=== PATIENT | male | born 1990 | race Caucasian/White ===

== ENCOUNTER 2016-05-09 18:21 | Emergency (ER) | payer OTHER ==
[2016-05-09] MEDS ORDERED: IPRATROPIUM-ALBUTEROL 3 ML NEB INHALATION STA (18:38)
[2016-05-09] MEDS ORDERED: ACETAMINOPHEN TAB 500 MG TAB PO STA (18:38)
--- NOTE | 2016-05-09 19:04 | ED ---
URI HPI - General Chief Complaint: Upper Respiratory Infection Stated Complaint: sob Time Seen by Provider: 05/09/16 18:33 Source: patient, RN notes reviewed Mode of arrival: ambulatory Limitations: no limitations - History of Present Illness Initial Comments: 25-year-old male presents emergency department to complaint of fever, cough. Patient states she's been sick for last 23 days. Patient states having problems with his asthma. He has been using his albuterol treatments. Patient states has not taken any Tylenol or Motrin today. Patient states that he feels like he has pneumonia. Patient states that is slightly nose but denies sore throat, ear pain, headache. Patient does complain of diffuse body aches and chills. Patient states he also has been having severe diarrhea and which she states that he actually had a bowel movement on himself because he cannot control it. Patient states he knew about it. - Related Data Home Medications Medication Instructions Recorded Confirmed Cetirizine HCl [Zyrtec] 10 mg PO DAILY 05/12/15 05/09/16 Albuterol Nebulized [Ventolin 2.5 mg INHALATION RT-Q8H PRN 05/01/16 05/09/16 Nebulized] guaiFENesin SYRUP 100MG/5ML 200 mg PO Q8H PRN 05/09/16 05/09/16 [Robitussin] Previous Rx's Medication Instructions Recorded Amoxicillin/Potassium Clav 1 tab PO Q12HR #20 tab 05/01/16 [Augmentin 875-125 Tablet] Azithromycin [Zithromax Z-pack] 0 mg PO DIRECTED #1 pack 05/09/16 methylPREDNISolone [Medrol Dose 4 mg PO DIRECTED #1 pack 05/09/16 Pack] Allergies Allergy/AdvReac Type Severity Reaction Status Date / Time diphenhydramine HCl Allergy Unknown Verified 05/09/16 18:35 [From Benadryl] latex Allergy Rash/Hives Verified 05/09/16 18:35 peanut Allergy Anaphylaxis Verified 05/09/16 18:35 peas Allergy Swelling Verified 05/09/16 18:35 quetiapine fumarate Allergy Unknown Verified 05/09/16 18:35 [From Seroquel] Review of Systems ROS Statement: Those systems with pertinent positive or pertinent negative responses have been documented in the HPI. ROS Other: All systems not noted in ROS Statement are negative. Past Medical History Past Medical History: Asthma, Skin Disorder Additional Past Medical History / Comment(s): cerebral palsy History of Any Multi-Drug Resistant Organisms: None Reported Additional Past Surgical History / Comment(s): mass removed from left lung Past Psychological History: ADD/ADHD, Anxiety, Depression Smoking Status: Current every day smoker Past Alcohol Use History: Rare Past Drug Use History: Marijuana General Exam Limitations: no limitations General appearance: alert, in no apparent distress Head exam: Present: atraumatic, normocephalic, normal inspection Eye exam: Present: normal appearance, PERRL, EOMI. Absent: scleral icterus, conjunctival injection, periorbital swelling ENT exam: Present: normal exam, normal oropharynx, mucous membranes moist, TM's normal bilaterally, normal external ear exam Neck exam: Present: normal inspection, full ROM. Absent: tenderness, meningismus, lymphadenopathy Respiratory exam: Present: wheezes (Diffuse). Absent: normal lung sounds bilaterally, respiratory distress, rales, rhonchi, stridor Cardiovascular Exam: Present: normal rhythm, tachycardia, normal heart sounds. Absent: systolic murmur, diastolic murmur, rubs, gallop, clicks GI/Abdominal exam: Present: soft, normal bowel sounds. Absent: distended, tenderness, guarding, rebound, rigid Back exam: Absent: CVA tenderness (R), CVA tenderness (L) Neurological exam: Present: alert, oriented X3, CN II-XII intact Skin exam: Present: warm, dry, intact, normal color. Absent: rash Course Vital Signs 05/09/16 05/09/16 05/09/16 18:24 18:54 19:02 Temperature 100.5 F H 101.8 F H Pulse Rate 126 H 111 H 110 H Respiratory 18 20 Rate Blood Pressure 132/60 135/60 O2 Sat by Pulse 95 94 L Oximetry 05/09/16 19:11 Temperature Pulse Rate 110 H Respiratory Rate Blood Pressure O2 Sat by Pulse Oximetry Medical Decision Making - Medical Decision Making 25-year-old male presented for fever cough and congestion. Patient does have right lobe pneumonia. Patient is doing better after DuoNeb treatment. Patient will be discharged on antibiotics, steroids and breathing treatments. Return parameters discussed. - Lab Data Lab Results 05/09/16 Range/Units 18:47 Influenza Type A RNA Not Detected (Not Detectd) Influenza Type B (PCR) Not Detected (Not Detectd) Disposition Clinical Impression: Pneumonia Disposition: HOME SELF-CARE Condition: Stable Instructions: Pneumonia (ED) Additional Instructions: Please return to the Emergency Department if symptoms worsen or any other concerns. Prescriptions: Azithromycin [Zithromax Z-pack] 0 mg PO DIRECTED #1 pack methylPREDNISolone [Medrol Dose Pack] 4 mg PO DIRECTED #1 pack Time of Disposition: 19:27
--- NOTE | 2016-05-09 19:09 | XR ---
EXAMINATION TYPE: XR chest 2V DATE OF EXAM: 05/09/2016 6:58 PM COMPARISON: NONE HISTORY: Cough and short of breath TECHNIQUE: Frontal and lateral views of the chest are obtained. FINDINGS: Heart and mediastinum are normal. There is some patchy airspace consolidation in the right lower lobe and probably a small infiltrate as well as in the right middle lobe. The left lung is michael ar. There are no hilar masses. There is no pleural effusion. Bony thorax is intact. IMPRESSION: Right lower lobe and right middle lobe pneumonia. Normal heart.
[2016-05-09] MEDS ORDERED: cefTRIAXone 1,000 MG VIAL (IM USE) IM STA (19:25)
[2016-05-09] MEDS ORDERED: predniSONE 50 MG TAB PO STA (19:25)
[2016-05-09] MEDS ORDERED: AZITHROMYCIN 250 MG TAB PO STA (19:27)
[2016-05-09 19:50] VITALS: BP 129/83; PULSE 100; RESP 18; TEMP 101.6
== END 2016-05-09 19:59 | disposition home or self-care (01) ==
LOC: EC 18:21
DX: J18.9 Pneumonia, unspecified organism (principal); J45.909 Unspecified asthma, uncomplicated; F17.200 Nicotine dependence, unspecified, uncomplicated; G80.9 Cerebral palsy, unspecified; Z88.8 Allergy status to other drugs, medicaments and biological substances; Z91.040 Latex allergy status
CPT/HCPCS: 99284; 96372; 94640; 87502; 71020; J0696; J7512

== ENCOUNTER 2017-02-15 20:13 | Emergency (ER) | payer OTHER ==
[2017-02-15] MEDS ORDERED: methylPREDNISolone SOD SUCCI 125 MG/2 ML VIAL IV STA (21:24)
[2017-02-15] MEDS ORDERED: ALBUTEROL NEBULIZED 7.5 MG, IPRATROPIUM NEBULIZED 0.5 MG, SODIUM CHLORIDE 0.9% NEBULIZ ... INHALATION ONE ×3 (21:24)
[2017-02-15] MEDS ORDERED: ACETAMINOPHEN TAB 500 MG TAB PO STA (21:24)
--- NOTE | 2017-02-15 21:27 | ED ---
General Adult HPI - General Chief complaint: Upper Respiratory Infection Stated complaint: SOB Time Seen by Provider: 02/15/17 21:00 Source: patient, RN notes reviewed Mode of arrival: wheelchair Limitations: no limitations - History of Present Illness Initial comments: This is a 26-year-old male presents emergency department with past medical history significant for asthma. Patient states he try to quit smoking about a week ago and ever since then he's had difficulty breathing and increased wheezing. Patient states he does feel warm as if he has a fever but he never took his temperature. Patient states she's taken multiple breathing treatments but the difficulty breathing persists. Patient denies any sputum production when he coughs. But he is having a increased cough. Patient denies any chest pain or palpitations. Patient denies abdominal pain patient denies nausea vomiting diarrhea. Patient denies any dysuria hematuria urinary frequency. Patient denies headache patient denies any numbness weakness. - Related Data Home Medications Medication Instructions Recorded Confirmed Cetirizine HCl [Zyrtec] 10 mg PO DAILY 05/12/15 05/09/16 Albuterol Nebulized [Ventolin 2.5 mg INHALATION RT-Q8H PRN 05/01/16 05/09/16 Nebulized] guaiFENesin SYRUP 100MG/5ML 200 mg PO Q8H PRN 05/09/16 05/09/16 [Robitussin] Previous Rx's Medication Instructions Recorded Amoxicillin/Potassium Clav 1 tab PO Q12HR #20 tab 05/01/16 [Augmentin 875-125 Tablet] Azithromycin [Zithromax Z-pack] 0 mg PO DIRECTED #1 pack 05/09/16 methylPREDNISolone [Medrol Dose 4 mg PO DIRECTED #1 pack 05/09/16 Pack] Albuterol Inhaler [Ventolin Hfa 1 - 2 puff INHALATION Q6HR PRN #2 02/15/17 Inhaler] puff predniSONE 40 mg PO DAILY #8 tab 02/15/17 Allergies Allergy/AdvReac Type Severity Reaction Status Date / Time diphenhydramine HCl Allergy Unknown Verified 05/09/16 18:35 [From Benadryl] latex Allergy Rash/Hives Verified 05/09/16 18:35 peanut Allergy Anaphylaxis Verified 05/09/16 18:35 peas Allergy Swelling Verified 05/09/16 18:35 quetiapine fumarate Allergy Unknown Verified 05/09/16 18:35 [From Seroquel] Review of Systems ROS Statement: Those systems with pertinent positive or pertinent negative responses have been documented in the HPI. ROS Other: All systems not noted in ROS Statement are negative. Past Medical History Past Medical History: Asthma, COPD, Skin Disorder Additional Past Medical History / Comment(s): cerebral palsy History of Any Multi-Drug Resistant Organisms: None Reported Additional Past Surgical History / Comment(s): mass removed from left lung Past Psychological History: ADD/ADHD, Anxiety, Depression Smoking Status: Current every day smoker Past Alcohol Use History: Rare Past Drug Use History: Marijuana General Exam - General Exam Comments Initial Comments: GENERAL: Patient is well-developed and well-nourished. Patient is nontoxic and well- hydrated and is in mild distress. ENT: Neck is soft and supple. No significant lymphadenopathy is noted. Oropharynx is clear. Moist mucous membranes. Neck has full range of motion without eliciting any pain. EYES: The sclera were anicteric and conjunctiva were pink and moist. Extraocular movements were intact and pupils were equal round and reactive to light. Eyelids were unremarkable. PULMONARY: Patient is wheezing diffusely. CARDIOVASCULAR: There is a regular rate and rhythm without any murmurs gallops or rubs. ABDOMEN: Soft and nontender with normal bowel sounds. No palpable organomegaly was noted. There is no palpable pulsatile mass. SKIN: Skin is clear with no lesions or rashes and otherwise unremarkable. NEUROLOGIC: Patient is alert and oriented x3. Cranial nerves II through XII are grossly intact. Motor and sensory are also intact. Normal speech, volume and content. Symmetrical smile. MUSCULOSKELETAL: Normal extremities with adequate strength and full range of motion. LYMPHATICS: No significant lymphadenopathy is noted PSYCHIATRIC: Normal psychiatric evaluation. Limitations: no limitations Course Vital Signs 02/15/17 02/15/17 02/15/17 20:38 21:37 21:44 Temperature 100.4 F H Pulse Rate 74 91 Respiratory 20 20 Rate Blood Pressure 100/55 O2 Sat by Pulse 97 Oximetry 02/15/17 22:05 Temperature Pulse Rate 94 Respiratory Rate Blood Pressure O2 Sat by Pulse Oximetry Medical Decision Making - Medical Decision Making I will begin to reevaluate the patient his lungs were much clear with only an occasional wheeze. Patient refuses second albuterol. Patient was oxygenating 90% on room air. Chest x-ray shows no acute abnormality Disposition Clinical Impression: Acute asthma exacerbation Disposition: HOME SELF-CARE Instructions: Asthma (ED) Prescriptions: Albuterol Inhaler [Ventolin Hfa Inhaler] 1 - 2 puff INHALATION Q6HR PRN #2 puff PRN Reason: Difficulty breathing predniSONE 40 mg PO DAILY #8 tab Referrals: None,Stated [Primary Care Provider] - 1-2 days Time of Disposition: 23:08
[2017-02-15] MEDS ORDERED: methylPREDNISolone SOD SUCCI 125 MG/2 ML VIAL IM ONE (21:32)
--- NOTE | 2017-02-15 22:50 | XR ---
EXAMINATION TYPE: XR chest 2V DATE OF EXAM: 02/15/2017 COMPARISON: 05/09/2016 HISTORY: Asthma TECHNIQUE: Frontal and lateral views of the chest are obtained. FINDINGS: Heart and mediastinum are normal. Lungs are clear. Diaphragm is normal. Bony thorax is int act. IMPRESSION: Normal chest. There is clearing of right middle lobe pneumonia compared to old exam.
[2017-02-15 23:20] VITALS: BP 124/57; PULSE 102; RESP 18; TEMP 98.2
== END 2017-02-15 23:18 | disposition home or self-care (01) ==
LOC: EC 20:13
DX: J45.901 Unspecified asthma with (acute) exacerbation (principal); F17.200 Nicotine dependence, unspecified, uncomplicated; Z53.8 Procedure and treatment not carried out for other reasons; Z88.8 Allergy status to other drugs, medicaments and biological substances; Z91.040 Latex allergy status; Z91.010 Allergy to peanuts; Z91.018 Allergy to other foods; Z79.899 Other long term (current) drug therapy
CPT/HCPCS: 99283 ×2; 96372 ×2; 94644; 71020; J2930

== ENCOUNTER 2017-05-26 23:26 | Emergency (ER) | payer OTHER ==
[2017-05-26 23:39] VITALS: RESP 20
--- NOTE | 2017-05-27 00:43 | XR ---
EXAMINATION TYPE: XR chest 2V DATE OF EXAM: 05/27/2017 COMPARISON: 02/15/2017 HISTORY: Cough TECHNIQUE: Frontal and lateral views of the chest are obtained. FINDINGS: Heart and mediastinum are normal. Lungs are clear. Diaphragm is normal. Bony thorax appear s normal. IMPRESSION: Normal chest. No adverse change compared to old exam.
[2017-05-27] MEDS ORDERED: IPRATROPIUM-ALBUTEROL 3 ML NEB INHALATION STA (00:56)
--- NOTE | 2017-05-27 02:36 | ED ---
SOB HPI - General Chief Complaint: Shortness of Breath Stated Complaint: SHALINI Hx Asthma Time Seen by Provider: 05/27/17 00:56 Source: patient Mode of arrival: ambulatory Limitations: no limitations - History of Present Illness Initial Comments: This patient is 26-year-old man who presents to be evaluated for some congestion , cough, and wheezing that have developed over the past couple of days. The patient states that he has tried his home inhalers without much relief. MD Complaint: shortness of breath, cough Onset/Timin -: days(s) Severity: moderate Consistency: constant Improves With: nothing Worsens With: nothing Known History Of: asthma Associated Symptoms: cough - Related Data Home Medications Medication Instructions Recorded Confirmed Albuterol Nebulized [Ventolin 2.5 mg INHALATION RT-Q8H PRN 05/01/16 05/26/17 Nebulized] Previous Rx's Medication Instructions Recorded Albuterol Inhaler [Ventolin Hfa 1 - 2 puff INHALATION Q6HR PRN #2 02/15/17 Inhaler] puff Albuterol Inhaler [Ventolin Hfa 1 - 2 puff INHALATION Q6HR PRN #1 05/27/17 Inhaler] inhaler Albuterol Nebulized [Ventolin 2.5 mg INHALATION Q4H #50 nebu 05/27/17 Nebulized] predniSONE 60 mg PO DAILY #30 tab 05/27/17 Allergies Allergy/AdvReac Type Severity Reaction Status Date / Time diphenhydramine HCl Allergy Unknown Verified 05/26/17 23:38 [From Benadryl] latex Allergy Rash/Hives Verified 05/26/17 23:38 peanut Allergy Anaphylaxis Verified 05/26/17 23:38 peas Allergy Swelling Verified 05/26/17 23:38 quetiapine fumarate Allergy Unknown Verified 05/26/17 23:38 [From Seroquel] Review of Systems ROS Statement: Those systems with pertinent positive or pertinent negative responses have been documented in the HPI. ROS Other: All systems not noted in ROS Statement are negative. Constitutional: Denies: fever, chills ENT: Reports: congestion Respiratory: Reports: cough, wheezes. Denies: dyspnea, hemoptysis Cardiovascular: Denies: chest pain, palpitations Gastrointestinal: Denies: abdominal pain, vomiting Skin: Denies: rash Neurological: Denies: headache, weakness Past Medical History Past Medical History: Asthma, COPD, Skin Disorder Additional Past Medical History / Comment(s): cerebral palsy History of Any Multi-Drug Resistant Organisms: None Reported Additional Past Surgical History / Comment(s): mass removed from left lung Past Psychological History: ADD/ADHD, Anxiety, Depression Smoking Status: Current every day smoker Past Alcohol Use History: Rare Past Drug Use History: Marijuana General Exam Limitations: no limitations General appearance: alert, in no apparent distress Head exam: Present: atraumatic, normocephalic Eye exam: Present: normal appearance. Absent: scleral icterus, conjunctival injection ENT exam: Present: normal oropharynx, mucous membranes moist Respiratory exam: Present: wheezes. Absent: respiratory distress, rales, rhonchi, stridor Cardiovascular Exam: Present: regular rate, normal rhythm, normal heart sounds. Absent: systolic murmur, diastolic murmur, rubs, gallop GI/Abdominal exam: Present: soft. Absent: tenderness Extremities exam: Present: normal inspection, normal capillary refill. Absent: pedal edema, calf tenderness Skin exam: Present: warm, dry, intact, normal color. Absent: rash Course Vital Signs 05/26/17 05/27/17 05/27/17 23:35 01:03 01:10 Temperature 100.5 F H Pulse Rate 89 88 101 H Respiratory 20 Rate Blood Pressure 135/75 O2 Sat by Pulse 94 L Oximetry 05/27/17 05/27/17 05/27/17 01:38 01:44 02:56 Temperature 98 F Pulse Rate 70 100 Respiratory 20 20 20 Rate Blood Pressure 131/69 129/63 O2 Sat by Pulse 97 94 L Oximetry Medical Decision Making - Lab Data Lab Results 05/26/17 Range/Units 23:40 Influenza Type A RNA Not Detected (Not Detectd) Influenza Type B (PCR) Not Detected (Not Detectd) Disposition Clinical Impression: Bronchitis Disposition: HOME SELF-CARE Condition: Good Instructions: Acute Bronchitis (ED) Prescriptions: Albuterol Inhaler [Ventolin Hfa Inhaler] 1 - 2 puff INHALATION Q6HR PRN #1 inhaler PRN Reason: Wheezing Albuterol Nebulized [Ventolin Nebulized] 2.5 mg INHALATION Q4H #50 nebu predniSONE 60 mg PO DAILY #30 tab Referrals: None,Stated [Primary Care Provider] - 1-2 days
[2017-05-27] MEDS ORDERED: predniSONE 20 MG TAB PO STA (02:44)
[2017-05-27 02:57] VITALS: BP 129/63; PULSE 100; TEMP 98
== END 2017-05-27 02:58 | disposition home or self-care (01) ==
LOC: EC 23:26
DX: J45.909 Unspecified asthma, uncomplicated (principal); F17.200 Nicotine dependence, unspecified, uncomplicated; Z88.8 Allergy status to other drugs, medicaments and biological substances; Z91.010 Allergy to peanuts; Z91.018 Allergy to other foods; Z91.040 Latex allergy status
CPT/HCPCS: 94640; 87502; 71046; 99285; J7512

== ENCOUNTER 2017-12-23 13:28 | Emergency (ER) | payer OTHER ==
[2017-12-23 13:41] VITALS: RESP 18; TEMP 98.5
[2017-12-23] MEDS ORDERED: methylPREDNISolone SOD SUCCI 125 MG/2 ML VIAL IV STA (13:58)
[2017-12-23] MEDS ORDERED: FAMOTIDINE 20 MG/2 ML VIAL IV STA (13:58)
[2017-12-23] MEDS ORDERED: SODIUM CHLORIDE 0.9% 1,000 ML IV STA (13:58)
[2017-12-23] MEDS ORDERED: ALBUTEROL NEBULIZED 2.5 MG/3 ML INHALATION STA (13:59)
[2017-12-23] MEDS ORDERED: hydrOXYzine HCL 25 MG TAB PO STA (13:59)
--- NOTE | 2017-12-23 14:10 | ED ---
General Adult HPI - General Chief complaint: Allergic Reaction Stated complaint: Bee sting/allergic Time Seen by Provider: 12/23/17 13:58 Source: patient, RN notes reviewed, old records reviewed Mode of arrival: wheelchair Limitations: no limitations - History of Present Illness Initial comments: This is a 27-year-old male to the ER for evaluation. Today patient was stuck by still stung by a bee. Patient has history of bee sting with severe ALLERGIC reaction and takes EpiPen. Patient states he was also stung yesterday took EpiPen was unable to take his EpiPen today, did not have one. Patient did not present to the ER for evaluation after prescribed himself his EpiPen yesterday. No significant chest pain no significant shortness of breath. - Related Data Home Medications Medication Instructions Recorded Confirmed Ibuprofen 800 mg PO Q6H PRN 12/23/17 12/23/17 Triamcinolone 0.1% Ointment 1 applic TOPICAL BID 12/23/17 12/23/17 [Kenalog 0.1% Ointment] Previous Rx's Medication Instructions Recorded Albuterol Inhaler [Ventolin Hfa 1 - 2 puff INHALATION Q6HR PRN #1 05/27/17 Inhaler] inhaler Famotidine [Pepcid] 20 mg PO BID #28 tablet 12/23/17 predniSONE 50 mg PO DAILY #5 tab 12/23/17 Allergies Allergy/AdvReac Type Severity Reaction Status Date / Time bee venom protein (honey bee) Allergy Unknown Verified 12/23/17 14:06 diphenhydramine HCl Allergy Unknown Verified 12/23/17 14:06 [From Benadryl] latex Allergy Rash/Hives Verified 12/23/17 14:06 peanut Allergy Anaphylaxis Verified 12/23/17 14:06 peas Allergy Swelling Verified 12/23/17 14:06 quetiapine fumarate Allergy Unknown Verified 12/23/17 14:06 [From Seroquel] Review of Systems ROS Statement: Those systems with pertinent positive or pertinent negative responses have been documented in the HPI. ROS Other: All systems not noted in ROS Statement are negative. Past Medical History Past Medical History: Asthma, COPD, Skin Disorder Additional Past Medical History / Comment(s): cerebral palsy History of Any Multi-Drug Resistant Organisms: None Reported Past Surgical History: No Surgical Hx Reported Additional Past Surgical History / Comment(s): mass removed from left lung Past Psychological History: ADD/ADHD, Anxiety, Depression Smoking Status: Current every day smoker Past Alcohol Use History: None Reported Past Drug Use History: None Reported General Exam - General Exam Comments Initial Comments: Mild insect bite, likely bee sting to in her arm mild erythema Limitations: no limitations General appearance: alert, in no apparent distress Head exam: Present: atraumatic, normocephalic, normal inspection Eye exam: Present: normal appearance, PERRL, EOMI. Absent: scleral icterus, conjunctival injection, periorbital swelling ENT exam: Present: normal exam, mucous membranes moist Neck exam: Present: normal inspection. Absent: tenderness, meningismus, lymphadenopathy Respiratory exam: Present: normal lung sounds bilaterally. Absent: respiratory distress, wheezes, rales, rhonchi, stridor Cardiovascular Exam: Present: regular rate, normal rhythm, normal heart sounds. Absent: systolic murmur, diastolic murmur, rubs, gallop, clicks GI/Abdominal exam: Present: soft, normal bowel sounds. Absent: distended, tenderness, guarding, rebound, rigid Extremities exam: Present: normal inspection, full ROM, normal capillary refill. Absent: tenderness, pedal edema, joint swelling, calf tenderness Back exam: Present: normal inspection Neurological exam: Present: alert, oriented X3, CN II-XII intact Psychiatric exam: Present: normal affect, normal mood Skin exam: Present: warm, dry, intact, normal color. Absent: rash Course Vital Signs 12/23/17 12/23/17 12/23/17 13:38 14:11 14:27 Temperature 98.5 F Pulse Rate 77 65 68 Respiratory 18 18 18 Rate Blood Pressure 97/62 O2 Sat by Pulse 95 Oximetry - Reevaluation(s) Reevaluation #1: 12/23/17 14:56 Symptoms are bee sting currently resolved. Patient states he feels much improved Medical Decision Making - Medical Decision Making 27 male the ER for evaluation positive bee sting, will discharge on steroids, no acute distress no stridor or shortness of breath currently. Erythematous reaction and arm is gone. Patient will be restocked his EpiPen and discharged home on steroids Disposition Clinical Impression: Allergic reaction, Allergic reaction to insect sting Disposition: HOME SELF-CARE Condition: Good Instructions: Insect Bite or Sting (ED) Prescriptions: Famotidine [Pepcid] 20 mg PO BID #28 tablet predniSONE 50 mg PO DAILY #5 tab Is patient prescribed a controlled substance at d/c from ED?: No Referrals: Gildardo Gaston MD [Primary Care Provider] - 1-2 days
[2017-12-23 15:24] VITALS: BP 110/52; PULSE 65
== END 2017-12-23 15:24 | disposition home or self-care (01) ==
LOC: EC 13:28
DX: T63.441A Toxic effect of venom of bees, accidental (unintentional), initial encounter (principal); F17.200 Nicotine dependence, unspecified, uncomplicated; Z79.52 Long term (current) use of systemic steroids; Z88.8 Allergy status to other drugs, medicaments and biological substances; Z91.010 Allergy to peanuts; Z91.018 Allergy to other foods; Z91.040 Latex allergy status; Z87.2 Personal history of diseases of the skin and subcutaneous tissue
CPT/HCPCS: 94640; 99284; 96374; 96375; 96361; J2930

== ENCOUNTER 2020-06-24 17:51 | Emergency (ER) | payer OTHER ==
[2020-06-24] MEDS ORDERED: DIPH,PERTUS(ACELL)TETVAC-LF 0.5 ML VIAL IM ONE (18:00)
[2020-06-24 18:01] VITALS: RESP 26; TEMP 98.6
--- NOTE | 2020-06-24 18:02 | ED ---
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 please excuse any grammatical, word or spelling errors. This patient was cared for during a federal and state declared state of emergency secondary to Covid 19 Chief Complaint: 30-year-old male presents with lacerations to his right fingers History of Present Illness: 30-year-old male who presents with laceration to his right fingers. Patient states the event happened approximately 30 minutes ago. He reached into a snowplow that was off and cut his fingers. States that he is not sure if they're amputated are not. Patient states that he has significant pain to his middle 3 digits. He has no other complaints. The ROS documented in this emergency department record has been reviewed and confirmed by me. Those systems with pertinent positive or negative responses have been documented in the HPI. All other systems are other negative and/or noncontributory. PHYSICAL EXAM: General Impression: Alert and oriented x3, crying, acute distress secondary to pain and anxiety HEENT: Normocephalic atraumatic, extra-ocular movements intact, pupils equal and reactive to light bilaterally, mucous membranes moist. Cardiovascular: Heart regular rate and rhythm Chest: Able to complete full sentences, no retractions, no tachypnea Abdomen: abdomen soft, non-tender, non-distended, no organomegaly Musculoskeletal: Pulses present and equal in all extremities, no peripheral edema Motor: no focal deficits noted Neurological: CN II-XII grossly intact, no focal motor or sensory deficits noted Skin: Intact with no visualized rashes Right hand: There are lacerations to the middle 3 digits without any palpitations. There is a 1 cm dorsal laceration over the DIP joint of the ring finger, there is a 1 cm laceration over the DIP of the middle finger dorsally and also in other 1 cm laceration over the volar surface of the middle finger, over the index finger there is a laceration over the proximal portion of the nail with mild subungual hematoma Psych: Normal affect and mood ED course: 30-year-old male presents today with finger lacerations from snowplow. Patient's distal fingertips appear to be intact. Patient's tetanus is updated. Hand x-ray shows fracture of the distal phalanx of the index finger. Lacerations were repaired at bedside. Patient was very anxious and given some Ativan during the procedure. Patient tolerated the procedure well. Patient lacerations were repaired using 4-0 nylon after digital block. Patient given prescription for by mouth analgesia, Keflex. - Related Data Home Medications Medication Instructions Recorded Confirmed Ibuprofen 800 mg PO Q6H PRN 12/23/17 12/23/17 Triamcinolone 0.1% Ointment 1 applic TOPICAL BID 12/23/17 12/23/17 [Kenalog 0.1% Ointment] Previous Rx's Medication Instructions Recorded Albuterol Inhaler (Mhu) [Ventolin 1 - 2 puff INHALATION Q6HR PRN #1 05/27/17 Hfa Inhaler (Mhu)] inhaler EPINEPHrine (Auto Inject) [Epipen] 0.3 mg IM ONCE PRN #1 syringe 12/23/17 Famotidine [Pepcid] 20 mg PO BID #28 tablet 12/23/17 predniSONE 50 mg PO DAILY #5 tab 12/23/17 Cephalexin [Keflex] 500 mg PO Q6HR 5 Days #20 cap 06/24/20 HYDROcodone/APAP 5-325MG [[place] 1 tab PO Q6HR PRN 3 Days #12 tab 06/24/20 5-325] Allergies Allergy/AdvReac Type Severity Reaction Status Date / Time bee venom protein (honey bee) Allergy Unknown Verified 12/23/17 14:06 diphenhydramine HCl Allergy Unknown Verified 12/23/17 14:06 [From Benadryl] latex Allergy Rash/Hives Verified 12/23/17 14:06 peanut Allergy Anaphylaxis Verified 12/23/17 14:06 peas Allergy Swelling Verified 12/23/17 14:06 quetiapine fumarate Allergy Unknown Verified 12/23/17 14:06 [From Seroquel] Review of Systems ROS Statement: Those systems with pertinent positive or pertinent negative responses have been documented in the HPI. ROS Other: All systems not noted in ROS Statement are negative. Past Medical History Past Medical History: Asthma, COPD, Skin Disorder Additional Past Medical History / Comment(s): cerebral palsy History of Any Multi-Drug Resistant Organisms: None Reported Past Surgical History: No Surgical Hx Reported Additional Past Surgical History / Comment(s): mass removed from left lung Past Psychological History: ADD/ADHD, Anxiety, Depression Smoking Status: Current every day smoker Past Alcohol Use History: None Reported Past Drug Use History: Marijuana General Exam Limitations: no limitations Course Vital Signs 06/24/20 17:57 Temperature 98.6 F Pulse Rate 100 Respiratory 26 H Rate Blood Pressure 123/74 O2 Sat by Pulse 98 Oximetry Procedures - Laceration Laceration #1 Consent Obtained: verbal consent Indication: laceration Site: hand Size (cm): 6 (cm total.) Description: linear Anesthetic Used: lidocaine 1% Anesthesia Technique: nerve block (digital block of digit 2-4) Type of Sutures: nylon Size of Sutures: 4-0 Technique: simple, interrupted Patient Tolerated Procedure: well Disposition Clinical Impression: Laceration Disposition: HOME SELF-CARE Condition: Good Instructions (If sedation given, give patient instructions): Laceration (ED) Additional Instructions: Follow-up for suture removal in 10 days. Please begin washing your wounds daily with warm water and soap starting tomorrow. Prescription sent for pain medicines and antibiotics that will be ready for pickup. Prescriptions: Cephalexin [Keflex] 500 mg PO Q6HR 5 Days #20 cap HYDROcodone/APAP 5-325MG [[place] 5-325] 1 tab PO Q6HR PRN 3 Days #12 tab PRN Reason: Severe Pain Is patient prescribed a controlled substance at d/c from ED?: Yes If prescribed controlled substance>3 days was MAPS reviewed?: Prescribed <3 Days Referrals: Casey Arzate MD [Primary Care Provider] - 1-2 days Time of Disposition: 19:38
[2020-06-24] MEDS ORDERED: MORPHINE SULFATE 4 MG/ML SYRINGE IV STA (18:09)
[2020-06-24] MEDS ORDERED: LIDOCAINE 1% INJ 10MG/ML (20 ML MDV) SQ ONE (18:19)
--- NOTE | 2020-06-24 18:39 | XR ---
EXAMINATION TYPE: XR hand complete RT DATE OF EXAM: 06/24/2020 COMPARISON: NONE HISTORY: Laceration TECHNIQUE: 3 views FINDINGS: The metacarpals are intact. There is nondisplaced fracture of the tuft of the distal phalan x of the index finger. There is no evidence of a foreign body. Joint spaces are normal. IMPRESSION: Fracture of the distal phalanx of the index finger.
[2020-06-24] MEDS ORDERED: LORazepam 2 MG/ML INJ IV STA (18:49)
[2020-06-24] MEDS ORDERED: CEPHALEXIN 500MG STARTER PACK 4 CAP BTL PO STA (19:38)
[2020-06-24] MEDS ORDERED: ACET/COD 300 MG/30 MG STARTER PACK 6 TAB BTL PO STA (19:38)
[2020-06-24 20:03] VITALS: BP 105/76; PULSE 93
== END 2020-06-24 20:10 | disposition home or self-care (01) ==
LOC: EC 17:51
DX: S62.630A Displaced fracture of distal phalanx of right index finger, initial encounter for closed fracture (principal); S61.212A Laceration without foreign body of right middle finger without damage to nail, initial encounter; S61.214A Laceration without foreign body of right ring finger without damage to nail, initial encounter; S61.210A Laceration without foreign body of right index finger without damage to nail, initial encounter; F17.200 Nicotine dependence, unspecified, uncomplicated; Z79.52 Long term (current) use of systemic steroids; Z91.030 Bee allergy status; Z88.8 Allergy status to other drugs, medicaments and biological substances; Z91.040 Latex allergy status; Z91.018 Allergy to other foods; Z91.010 Allergy to peanuts; Z23 Encounter for immunization; W45.8XXA Other foreign body or object entering through skin, initial encounter; Y93.29 Activity, other involving ice and snow; Y92.009 Unspecified place in unspecified non-institutional (private) residence as the place of occurrence of the external cause
CPT/HCPCS: 12002; 90471; 90715; 96374; 96375; 99283

== ENCOUNTER 2020-10-02 11:03 | Emergency (ER) | payer OTHER ==
[2020-10-02 12:35] VITALS: BP 134/66; PULSE 91; RESP 18; TEMP 98.7
--- NOTE | 2020-10-02 12:45 | ED ---
Lower Extremity Injury HPI - General Chief Complaint: Extremity Injury, Lower Stated Complaint: L Toes Injury Time Seen by Provider: 10/02/20 12:38 Source: patient Mode of arrival: ambulatory Limitations: no limitations - History of Present Illness Initial Comments: 30-year-old male presents to emergency Department with a chief complaint of a toe injury to have about one hour ago. States he was walking around his house when he hit his left toes on the wall. States most of the pain is located on the second through fourth digits. He denies any ecchymosis or erythema to the region. Denies taking medication to alleviate the symptoms. Denies any paresthesias. - Related Data Home Medications Medication Instructions Recorded Confirmed Ibuprofen 800 mg PO Q6H PRN 12/23/17 12/23/17 Triamcinolone 0.1% Ointment 1 applic TOPICAL BID 12/23/17 12/23/17 [Kenalog 0.1% Ointment] Previous Rx's Medication Instructions Recorded Albuterol Inhaler (Mhu) [Ventolin 1 - 2 puff INHALATION Q6HR PRN #1 05/27/17 Hfa Inhaler (Mhu)] inhaler EPINEPHrine (Auto Inject) [Epipen] 0.3 mg IM ONCE PRN #1 syringe 12/23/17 Famotidine [Pepcid] 20 mg PO BID #28 tablet 12/23/17 predniSONE 50 mg PO DAILY #5 tab 12/23/17 Cephalexin [Keflex] 500 mg PO Q6HR 5 Days #20 cap 06/24/20 HYDROcodone/APAP 5-325MG [[place] 1 tab PO Q6HR PRN 3 Days #12 tab 06/24/20 5-325] Allergies Allergy/AdvReac Type Severity Reaction Status Date / Time bee venom protein (honey bee) Allergy Unknown Verified 10/02/20 12:35 diphenhydramine HCl Allergy Unknown Verified 10/02/20 12:35 [From Benadryl] latex Allergy Rash/Hives Verified 10/02/20 12:35 peanut Allergy Anaphylaxis Verified 10/02/20 12:35 peas Allergy Swelling Verified 10/02/20 12:35 quetiapine fumarate Allergy Unknown Verified 10/02/20 12:35 [From Seroquel] Review of Systems ROS Statement: Those systems with pertinent positive or pertinent negative responses have been documented in the HPI. ROS Other: All systems not noted in ROS Statement are negative. Past Medical History Past Medical History: Asthma, COPD, Skin Disorder Additional Past Medical History / Comment(s): cerebral palsy History of Any Multi-Drug Resistant Organisms: None Reported Past Surgical History: No Surgical Hx Reported Additional Past Surgical History / Comment(s): mass removed from left lung Past Psychological History: ADD/ADHD, Anxiety, Depression Smoking Status: Current every day smoker Past Alcohol Use History: None Reported Past Drug Use History: Marijuana General Exam Limitations: no limitations General appearance: alert, in no apparent distress, obese Head exam: Present: atraumatic, normocephalic, normal inspection Eye exam: Present: normal appearance, PERRL, EOMI Pupils: Present: normal accommodation ENT exam: Present: normal exam, normal oropharynx, mucous membranes moist Neck exam: Present: normal inspection, full ROM. Absent: tenderness Respiratory exam: Present: normal lung sounds bilaterally. Absent: respiratory distress, wheezes, rales, rhonchi, stridor, chest wall tenderness Cardiovascular Exam: Present: regular rate, normal rhythm, normal heart sounds Extremities exam: Present: normal inspection, tenderness (Tenderness along the left second through fourth digits. No midfoot tenderness.), normal capillary refill, other (Palpable DP and PT bilaterally). Absent: full ROM (Limited range of motion due to pain), pedal edema, joint swelling, calf tenderness Back exam: Present: normal inspection, full ROM Neurological exam: Present: alert, oriented X3 Psychiatric exam: Present: normal affect, normal mood Skin exam: Present: warm, dry, intact, normal color Course Vital Signs 10/02/20 12:33 Temperature 98.7 F Pulse Rate 91 Respiratory 18 Rate Blood Pressure 134/66 O2 Sat by Pulse 96 Oximetry Procedures - Orthopedic Splinting/Casting Injury #1 Side: left Upper Extremity Immobilizer: xi tape Lower Extremity Injury Location: toe Medical Decision Making - Medical Decision Making 30-year-old male presents to emergency Department with a chief complaint of a toe injury to have about one hour ago. X-ray reveals a third digit fracture of the left foot. Xi tape was applied. Patient is neurovascularly intact. Advised to follow-up with orthopedics. Return parameters discussed. Case discussed with Dr. Smith. Disposition Clinical Impression: Fracture of third toe, left, closed Disposition: HOME SELF-CARE Condition: Stable Instructions (If sedation given, give patient instructions): Toe Fracture (ED) Additional Instructions: Follow with orthopedics. Return to emergency department if symptoms worsen. Is patient prescribed a controlled substance at d/c from ED?: No Referrals: Casey Arzate MD [Primary Care Provider] - 1-2 days Time of Disposition: 13:26
--- NOTE | 2020-10-02 13:10 | XR ---
Left foot HISTORY: Trauma, pain 2views the left foot There is distortion of the third digit middle phalanx medially, intra-articular displaced fracture is present. Difficult to exclude dislocation on the limited exam. IMPRESSION: Third digit fracture left foot
== END 2020-10-02 13:41 | disposition home or self-care (01) ==
LOC: EC 11:03
DX: S92.332A Displaced fracture of third metatarsal bone, left foot, initial encounter for closed fracture (principal); F32.9 Major depressive disorder, single episode, unspecified; F41.9 Anxiety disorder, unspecified; F12.90 Cannabis use, unspecified, uncomplicated; J44.9 Chronic obstructive pulmonary disease, unspecified; G80.9 Cerebral palsy, unspecified; F17.200 Nicotine dependence, unspecified, uncomplicated; Z79.51 Long term (current) use of inhaled steroids; Z79.52 Long term (current) use of systemic steroids; W22.01XA Walked into wall, initial encounter; Y93.01 Activity, walking, marching and hiking
CPT/HCPCS: 99283

== ENCOUNTER → 2021-01-05 | Outpatient (CLI) | payer OTHER ==
[2021-01-05 18:50] LABS: Basophils # (A) 0.08 X 10*3/uL (0.00-0.10); Basophils % (A) 0.9 %; Eosinophils # (A) 0.67 X 10*3/uL (0.04-0.35); Eosinophils % (A) 7.8 %; HGB 15.1 g/dL (13.0-17.0); Lymphocytes # (A) 2.79 X 10*3/uL (0.90-5.00); Lymphocytes % (A) 32.5 %; MCH 30.5 pg (27.0-32.0); MCHC 32.8 g/dL (32.0-37.0); MCV 92.9 fL (80.0-97.0); Mean Platelet Volume 9.5 fL (9.5-12.2); Monocytes # (A) 0.89 X 10*3/uL (0.20-1.00); Monocytes % (A) 10.4 %; Neutrophils # (A) 4.12 X 10*3/uL (1.80-7.70); Neutrophils % (A) 48.1 %; Platelet Count 217 X 10*3/uL (140-440); RBC 4.95 X 10*6/uL (4.40-5.60); RDW 12.8 % (11.5-14.5); WBC 8.58 X 10*3/uL (4.50-10.00)
== END | disposition home or self-care (01) ==
LOC: LABWHC1 12:42
PROVIDERS: ATTEND Physician Assistant
DX: J45.50 Severe persistent asthma, uncomplicated (principal)
CPT/HCPCS: 36415; 82785; 85025

== ENCOUNTER 2022-09-03 12:40 | Emergency (ER) | payer OTHER ==
[2022-09-03] MEDS ORDERED: ALBUTEROL HFA INHALER INHALATION STA (12:50)
[2022-09-03] MEDS ORDERED: methylPREDNISolone SOD SUCCI 125 MG/2 ML VIAL IV STA (12:51)
--- NOTE | 2022-09-03 12:56 | ED ---
SOB HPI - General Stated Complaint: SOB Time Seen by Provider: 09/03/22 12:40 Source: patient, EMS, RN notes reviewed Mode of arrival: EMS Limitations: no limitations - History of Present Illness Initial Comments: 32 -year-old male with a history of COPD and asthma who is a smoker who presents with complaints of shortness of breath and cough for the past 2-3 days along with fever chills sweats. He was brought in by EMS he was given aspirin and route due to the chest pain he states it hurts to inhale. He states he seems be able exhale okay. He does have a cough but denies any phlegm production. Denies any palpitation any earache sore throat rhinorrhea at this time. He states the pain in his chest is midsternal and only occurs when he coughs or with inhaling. MD Complaint: shortness of breath, cough, chest pain - Related Data Home Medications Medication Instructions Recorded Confirmed Albuterol Inhaler [Ventolin Hfa 2 puff INHALATION RT-Q6H PRN 09/03/22 09/03/22 Inhaler] Budesonide/Formoterol Fumarate 2 puff INHALATION RT-BID 09/03/22 09/03/22 [Symbicort 160-4.5 Mcg Inhaler] Cetirizine HCl [Zyrtec] 10 mg PO DAILY 09/03/22 09/03/22 Dupilumab [Dupixent Syringe] 300 mg SQ Q14D 09/03/22 09/03/22 Escitalopram [Lexapro] 10 mg PO DAILY 09/03/22 09/03/22 Ipratropium-Albuterol Nebulize 3 ml INHALATION RT-TID PRN 09/03/22 09/03/22 [Duoneb 0.5 mg-3 mg/3 ml Soln] Montelukast Sodium [Singulair] 10 mg PO DAILY 09/03/22 09/03/22 hydrOXYzine pamoate [hydrOXYzine 25 mg PO TID PRN 09/03/22 09/03/22 PAMOATE] traZODone HCL [Desyrel] 50 mg PO HS 09/03/22 09/03/22 Previous Rx's Medication Instructions Recorded Azithromycin [Zithromax Z Pack] 1 tab PO DIRECTED #6 tab 09/03/22 predniSONE [Deltasone] 20 mg PO BID #10 tab 09/03/22 Allergies Allergy/AdvReac Type Severity Reaction Status Date / Time bee venom protein (honey bee) Allergy Unknown Verified 09/03/22 13:14 diphenhydramine HCl Allergy Unknown Verified 09/03/22 13:14 [From Benadryl] latex Allergy Rash/Hives Verified 09/03/22 13:14 peanut Allergy Anaphylaxis Verified 09/03/22 13:14 peas Allergy Swelling Verified 09/03/22 13:14 quetiapine fumarate Allergy Unknown Verified 09/03/22 13:14 [From Seroquel] Review of Systems ROS Statement: Those systems with pertinent positive or pertinent negative responses have been documented in the HPI. ROS Other: All systems not noted in ROS Statement are negative. Past Medical History Past Medical History: Asthma, COPD, Skin Disorder Additional Past Medical History / Comment(s): cerebral palsy History of Any Multi-Drug Resistant Organisms: None Reported Past Surgical History: No Surgical Hx Reported Additional Past Surgical History / Comment(s): mass removed from left lung Past Psychological History: ADD/ADHD, Anxiety, Depression Smoking Status: Current every day smoker Past Alcohol Use History: None Reported Past Drug Use History: Marijuana General Exam - General Exam Comments Initial Comments: This is a well-developed well-nourished awake alert oriented 4 male he does demonstrate audible wheezing Limitations: no limitations General appearance: alert, anxious, in distress Head exam: Present: atraumatic, normocephalic, normal inspection Eye exam: Present: normal appearance, PERRL, EOMI. Absent: scleral icterus, conjunctival injection, periorbital swelling ENT exam: Present: normal exam, mucous membranes moist Neck exam: Present: normal inspection, full ROM, other (No stridor JVD or bruits). Absent: tenderness, meningismus, lymphadenopathy Respiratory exam: Present: wheezes, chest wall tenderness (Reproducible tenderness palpation on the costal sternal margin no step-off or crepitation this does reproduce the patient's pain), decreased breath sounds. Absent: respiratory distress, rales, rhonchi, stridor Cardiovascular Exam: Present: normal rhythm, tachycardia, normal heart sounds. Absent: systolic murmur, diastolic murmur, rubs, gallop, clicks GI/Abdominal exam: Present: soft, normal bowel sounds. Absent: distended, tenderness, guarding, rebound, rigid Extremities exam: Present: normal inspection, full ROM, normal capillary refill. Absent: tenderness, pedal edema, joint swelling, calf tenderness Back exam: Present: normal inspection Neurological exam: Present: alert, oriented X3, CN II-XII intact Psychiatric exam: Present: normal affect, normal mood Skin exam: Present: warm, dry, intact, normal color. Absent: rash Course Vital Signs 09/03/22 09/03/22 12:42 12:46 Temperature 101.3 F H Pulse Rate 104 H Respiratory 22 24 Rate Blood Pressure 110/94 O2 Sat by Pulse 96 Oximetry Procedures - Smoking Cessation Time Spent Discussing Smoking Cessation w/Patient (Minutes): 3 Patient Acknowledges Need for Cessation: Yes Medical Decision Making - Medical Decision Making I did reevaluate patient is feeling much improved this time he has increased aeration no wheezing audible at this time. I did discuss findings with him and his family patient will be discharged he does have an inhaler that will be delivered to his house today he will in addition is be placed on oral steroids and antibiotics. The presentation is consistent with asthmatic bronchitis. Was pt. sent in by a medical professional or institution (, PA, DRY HOUSE OPERATOR, urgent care, hospital, or detention...) When possible be specific @ -No Did you speak to anyone other than the patient for history (EMS, parent, family, police, friend...)? What history was obtained from this source @ -Paramedics upon arrival Did you review nursing and triage notes (agree or disagree)? Why? @ -I reviewed and agree with nursing and triage notes Were old charts reviewed (outside hosp., previous admission, EMS record, old EKG, old radiological studies, urgent care reports/EKG's, detention records)? Report findings @ -No old charts were reviewed Differential Diagnosis (chest pain, altered mental status, abdominal pain women, abdominal pain men, vaginal bleeding, weakness, fever, dyspnea, syncope, headache, dizziness, GI bleed, back pain, seizure, CVA, palpatations, mental health, musculoskeletal)? @ -Asthma exacerbation, pneumonia, asthmatic bronchitis, febrile illness EKG interpreted by me (3pts min.). @ -As above X-rays interpreted by me (1pt min.). @ -As above CT interpreted by me (1pt min.). @ -None done U/S interpreted by me (1pt. min.). @ -None done What testing was considered but not performed or refused? (CT, X-rays, U/S, labs)? Why? @ -None What meds were considered but not given or refused? Why? @ -None Did you discuss the management of the patient with other professionals (professionals i.e. , PA, DRY HOUSE OPERATOR, lab, RT, psych nurse, social worker psychiatric, actuarial clerk, teacher, commanding officer traffic division, counseling case manager)? Give summary @ -No Was smoking cessation discussed for >3mins.? @ -Yes Was critical care preformed (if so, how long)? @ -No Were there social determinants of health that impacted care today? How? (Homelessness, low income, unemployed, alcoholism, drug addiction, t ransportation, low edu. Level, literacy, decrease access to med. care, senior care, rehab)? @ -No Was there de-escalation of care discussed even if they declined (Discuss DNR or withdrawal of care, Hospice)? DNR status @ -No What co-morbidities impacted this encounter? (DM, HTN, Smoking, COPD, CAD, Cancer, CVA, ARF, Chemo, Hep., AIDS, mental health diagnosis, sleep apnea, morbid obesity)? @ -Asthma, smoking] Was patient admitted / discharged? Hospital course, mention meds given and route, prescriptions, significant lab abnormalities, going to OR and other pertinent info. @ -hospital course patient was discharged home he is to receive a inhaler today at his residence he will be placed on oral steroids as well as a brief course of antibiotics Undiagnosed new problem with uncertain prognosis? @ -No Drug Therapy requiring intensive monitoring for toxicity (Heparin, Nitro, Insulin, Cardizem)? @ -No Were any procedures done? @ -No Diagnosis/symptom? @ -Acute asthmatic bronchitis, febrile illness, smoking Acute, or Chronic, or Acute on Chronic? @ -Acute on chronic Uncomplicated (without systemic symptoms) or Complicated (systemic symptoms)? @ -default Side effects of treatment? @ -No Exacerbation, Progression, or Severe Exacerbation? @ -Exacerbation Poses a threat to life or bodily function? How? (Chest pain, [place], [place], pneumonia, PE, COPD, DKA, ARF, appy, cholecystitis, CVA, Diverticulitis, Homicidal, Suicidal, threat to staff... and all critical care pts) @ -No - Lab Data Result diagrams: 09/03/22 12:55 09/03/22 12:55 Lab Results 09/03/22 09/03/22 09/03/22 Range/Units 12:55 12:55 12:55 WBC 6.2 (3.8-10.6) k/uL RBC 5.28 (4.30-5.90) m/uL Hgb 16.2 (13.0-17.5) gm/dL Hct 44.9 (39.0-53.0) % MCV 85.2 (80.0-100.0) fL MCH 30.6 (25.0-35.0) pg MCHC 36.0 (31.0-37.0) g/dL RDW 12.6 (11.5-15.5) % Plt Count 163 (150-450) k/uL MPV 7.3 Neutrophils % 62 % Lymphocytes % 23 % Monocytes % 5 % Eosinophils % 5 % Basophils % 0 % Neutrophils # 3.8 (1.3-7.7) k/uL Lymphocytes # 1.4 (1.0-4.8) k/uL Monocytes # 0.3 (0-1.0) k/uL Eosinophils # 0.3 (0-0.7) k/uL Basophils # 0.0 (0-0.2) k/uL PT 10.4 (9.0-12.0) sec INR 1.0 (<1.2) APTT 25.3 (22.0-30.0) sec D-Dimer 0.59 (<0.60) mg/L FEU Sodium 137 (137-145) mmol/L Potassium 3.6 (3.5-5.1) mmol/L Chloride 103 (98-107) mmol/L Carbon Dioxide 23 (22-30) mmol/L Anion Gap 11 mmol/L BUN 12 (9-20) mg/dL Creatinine 0.88 (0.66-1.25) mg/dL Est GFR (CKD-EPI)AfAm >90 (>60 ml/min/1.73 sqM) Est GFR (CKD-EPI)NonAf >90 (>60 ml/min/1.73 sqM) Glucose 113 H (74-99) mg/dL Plasma Lactic Acid Naun (0.7-2.0) mmol/L Calcium 8.5 (8.4-10.2) mg/dL Magnesium 2.0 (1.6-2.3) mg/dL Total Bilirubin 0.7 (0.2-1.3) mg/dL AST 34 (17-59) U/L ALT 27 (4-49) U/L Alkaline Phosphatase 76 (38-126) U/L Troponin I (0.000-0.034) ng/mL Total Protein 7.0 (6.3-8.2) g/dL Albumin 4.0 (3.5-5.0) g/dL Influenza Type A (PCR) (Not Detectd) Influenza Type B (PCR) (Not Detectd) RSV (PCR) (Not Detectd) SARS-CoV-2 (PCR) (Not Detectd) 09/03/22 09/03/22 09/03/22 Range/Units 12:55 12:55 12:55 WBC (3.8-10.6) k/uL RBC (4.30-5.90) m/uL Hgb (13.0-17.5) gm/dL Hct (39.0-53.0) % MCV (80.0-100.0) fL MCH (25.0-35.0) pg MCHC (31.0-37.0) g/dL RDW (11.5-15.5) % Plt Count (150-450) k/uL MPV Neutrophils % % Lymphocytes % % Monocytes % % Eosinophils % % Basophils % % Neutrophils # (1.3-7.7) k/uL Lymphocytes # (1.0-4.8) k/uL Monocytes # (0-1.0) k/uL Eosinophils # (0-0.7) k/uL Basophils # (0-0.2) k/uL PT (9.0-12.0) sec INR (<1.2) APTT (22.0-30.0) sec D-Dimer (<0.60) mg/L FEU Sodium (137-145) mmol/L Potassium (3.5-5.1) mmol/L Chloride (98-107) mmol/L Carbon Dioxide (22-30) mmol/L Anion Gap mmol/L BUN (9-20) mg/dL Creatinine (0.66-1.25) mg/dL Est GFR (CKD-EPI)AfAm (>60 ml/min/1.73 sqM) Est GFR (CKD-EPI)NonAf (>60 ml/min/1.73 sqM) Glucose (74-99) mg/dL Plasma Lactic Acid Naun 1.3 (0.7-2.0) mmol/L Calcium (8.4-10.2) mg/dL Magnesium (1.6-2.3) mg/dL Total Bilirubin (0.2-1.3) mg/dL AST (17-59) U/L ALT (4-49) U/L Alkaline Phosphatase (38-126) U/L Troponin I <0.012 (0.000-0.034) ng/mL Total Protein (6.3-8.2) g/dL Albumin (3.5-5.0) g/dL Influenza Type A (PCR) Not Detected (Not Detectd) Influenza Type B (PCR) Not Detected (Not Detectd) RSV (PCR) Not Detected (Not Detectd) SARS-CoV-2 (PCR) Not Detected (Not Detectd) - EKG Data -: EKG Interpreted by Me EKG Comments: EKG interpreted by me sinus tachycardia rate of 102 MD interval 149 QRS duration 94 QT since QTC 39/367 st-t wave changes - Radiology Data Interpreted by me: I did interpret the imaging no evidence of acute processes seen Disposition Clinical Impression: Acute asthmatic bronchitis, Febrile illness, acute, Smoking, Chest wall pain Disposition: HOME SELF-CARE Condition: Good Instructions (If sedation given, give patient instructions): Asthma (ED), Acute Bronchitis (ED), Chest Pain (ED) Prescriptions: predniSONE [Deltasone] 20 mg PO BID #10 tab Azithromycin [Zithromax Z Pack] 1 tab PO DIRECTED #6 tab Is patient prescribed a controlled substance at d/c from ED?: No Referrals: Nathan Price MD [Primary Care Provider] - 1-2 days Decision Date: 09/03/22 Decision Time: 14:38
[2022-09-03 13:08] LABS: Basophils % (A) 0 %; Eosinophils # (A) 0.3 k/uL (0-0.7); Eosinophils % (A) 5 %; HCT 44.9 % (39.0-53.0); HGB 16.2 gm/dL (13.0-17.5); Lymphocytes # (A) 1.4 k/uL (1.0-4.8); Lymphocytes % (A) 23 %; MCH 30.6 pg (25.0-35.0); MCV 85.2 fL (80.0-100.0); Mean Platelet Volume 7.3; Monocytes # (A) 0.3 k/uL (0-1.0); Monocytes % (A) 5 %; Neutrophils # (A) 3.8 k/uL (1.3-7.7); Neutrophils % (A) 62 %; Platelet Count 163 k/uL (150-450); RBC 5.28 m/uL (4.30-5.90); RDW 12.6 % (11.5-15.5); WBC 6.2 k/uL (3.8-10.6)
[2022-09-03 13:21] LABS: Partial Thromboplastin Time 25.3 sec (22.0-30.0); Prothrombin Time 10.4 sec (9.0-12.0)
[2022-09-03 13:32] LABS: ALT 27 U/L (4-49); AST 34 U/L (17-59); African American GFR (CKD) >90 (>60 ml/min/1.73 sqM); Alkaline Phosphatase 76 U/L (38-126); Anion Gap 11 mmol/L; Blood Urea Nitrogen 12 mg/dL (9-20); Calcium 8.5 mg/dL (8.4-10.2); Carbon Dioxide 23 mmol/L (22-30); Chloride 103 mmol/L (98-107); Glucose 113 mg/dL (74-99); Non-African American GFR(CKD) >90 (>60 ml/min/1.73 sqM); Potassium 3.6 mmol/L (3.5-5.1); Sodium 137 mmol/L (137-145); Total Bilirubin 0.7 mg/dL (0.2-1.3)
--- NOTE | 2022-09-03 13:48 | XR ---
EXAMINATION TYPE: XR chest 2V DATE OF EXAM: 09/03/2022 1:40 PM COMPARISON: Chest radiographs from 07/12/2022 TECHNIQUE: XR chest 2V Frontal and lateral views of the chest. CLINICAL INDICATION:Male, 32 years old with history of difficulty breathing; FINDINGS: Lungs/Pleura: There is no evidence of pleural effusion, focal consolidation, or pneumothorax. Pulmonary vascularity: Unremarkable. Heart/mediastinum: Cardiomediastinal silhouette is unremarkable. Musculoskeletal: No acute osseous pathology. IMPRESSION: No acute cardiopulmonary disease/process.
[2022-09-03 14:47] VITALS: BP 112/96; PULSE 92; RESP 18; TEMP 98.9
== END 2022-09-03 14:58 | disposition home or self-care (01) ==
LOC: EC 12:40
DX: J45.909 Unspecified asthma, uncomplicated (principal); R50.9 Fever, unspecified; R07.89 Other chest pain; F41.9 Anxiety disorder, unspecified; F32.A Depression, unspecified; F17.200 Nicotine dependence, unspecified, uncomplicated; F12.90 Cannabis use, unspecified, uncomplicated; Z91.030 Bee allergy status; Z91.040 Latex allergy status; Z91.010 Allergy to peanuts; Z88.8 Allergy status to other drugs, medicaments and biological substances; Z79.51 Long term (current) use of inhaled steroids; Z79.899 Other long term (current) drug therapy; Z20.822 Contact with and (suspected) exposure to COVID-19
CPT/HCPCS: 36415; 94640; 93005; 85379; 83880; 80053; 83605; 83735; 84484; 85025; 85610; 85730; 87636; 71046; 99285; 96374; J2930

== ENCOUNTER 2023-03-17 09:20 | Emergency (ER) | payer OTHER ==
[2023-03-17] MEDS ORDERED: NALOXONE 0.4 MG/ML 1 ML VIAL IVP STA (09:37)
[2023-03-17] MEDS ORDERED: ONDANSETRON 4 MG/2 ML VIAL IVP STA (09:38)
[2023-03-17] MEDS ORDERED: SODIUM CHLORIDE 0.9% 1,000 ML IV ONE (09:38)
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
[2023-03-17 10:15] VITALS: RESP 18
[2023-03-17 11:33] LABS: Cocaine Screen,Urine Detected (NotDetected); Phencyclidine Screen,Urine Not Detected (NotDetected); Urn Cannabinoid Scrn Detected (NotDetected)
[2023-03-17 11:34] LABS: Amphetamine Screen,Urine Detected (NotDetected); Barbiturate Screen,Urine Not Detected (NotDetected); Benzodiazepines Screen,Urine Not Detected (NotDetected); Methadone Screen, Urine Not Detected (NotDetected); Opiate Screen,Urine Not Detected (NotDetected); Oxycodone Screen, Urine Not Detected (NotDetected); Tricyclic Antidepressant,Urine Not Detected (NotDetected)
[2023-03-17 12:18] VITALS: BP 105/69; PULSE 71; TEMP 97.4
== END 2023-03-17 12:05 | disposition home or self-care (01) ==
LOC: EC 09:20
DX: R63.2 Polyphagia (principal); J44.89 Other specified chronic obstructive pulmonary disease; F32.A Depression, unspecified; F41.9 Anxiety disorder, unspecified; F17.200 Nicotine dependence, unspecified, uncomplicated; F12.90 Cannabis use, unspecified, uncomplicated; F15.90 Other stimulant use, unspecified, uncomplicated; Z79.51 Long term (current) use of inhaled steroids; Z79.899 Other long term (current) drug therapy; Z91.030 Bee allergy status; Z91.040 Latex allergy status; Z91.010 Allergy to peanuts; Z88.8 Allergy status to other drugs, medicaments and biological substances
CPT/HCPCS: 93005; 80306; 99285; 96374; 96375; 96361; J2310; J2405

== ENCOUNTER 2023-10-07 23:43 | Observation (INO) | payer OTHER ==
[2023-10-07 23:50] VITALS: TEMP 97.6
--- NOTE | 2023-10-07 23:58 | ED ---
General Adult HPI - General Chief complaint: Recheck/Abnormal Lab/Rx Stated complaint: Food in Throat Time Seen by Provider: 10/07/23 23:57 Source: EMS Mode of arrival: EMS - History of Present Illness Initial comments: Meliton is a 33-year-old male who presents the ER today with complaint of meat being stuck in his throat. Patient states he was eating ribs and feels like there is something stuck in his throat. He describes it as painful like may be a bone or Gem. Patient states this has been going on for about an hour prior to arrival. Patient is having trouble tolerating his own saliva. This is never happened before. - Related Data Home Medications Medication Instructions Recorded Confirmed Albuterol Inhaler [Ventolin Hfa 2 puff INHALATION RT-Q6H PRN 09/03/22 03/17/23 Inhaler] Budesonide/Formoterol Fumarate 2 puff INHALATION RT-BID 09/03/22 03/17/23 [Symbicort 160-4.5 Mcg Inhaler] Cetirizine HCl [Zyrtec] 10 mg PO DAILY 09/03/22 03/17/23 Dupilumab [Dupixent Syringe] 300 mg SQ Q14D 09/03/22 03/17/23 Escitalopram [Lexapro] 10 mg PO DAILY 09/03/22 03/17/23 Ipratropium-Albuterol Nebulize 3 ml INHALATION RT-TID PRN 09/03/22 03/17/23 [Duoneb 0.5 mg-3 mg/3 ml Soln] Montelukast Sodium [Singulair] 10 mg PO DAILY 09/03/22 03/17/23 hydrOXYzine pamoate 25 mg PO TID PRN 09/03/22 03/17/23 traZODone HCL [Desyrel] 50 mg PO HS 09/03/22 03/17/23 Fluticasone/Umeclidin/Vilanter 1 puff INHALATION RT-DAILY 03/17/23 03/17/23 [[place] Ellipta 200-62.5-25] Allergies Allergy/AdvReac Type Severity Reaction Status Date / Time bee venom protein (honey bee) Allergy Unknown Verified 10/07/23 23:53 diphenhydramine HCl Allergy Unknown Verified 10/07/23 23:53 [From Benadryl] latex Allergy Rash/Hives Verified 10/07/23 23:53 peanut Allergy Anaphylaxis Verified 10/07/23 23:53 peas Allergy Swelling Verified 10/07/23 23:53 quetiapine fumarate Allergy Unknown Verified 10/07/23 23:53 [From Seroquel] Review of Systems ROS Statement: Those systems with pertinent positive or pertinent negative responses have been documented in the HPI. ROS Other: All systems not noted in ROS Statement are negative. Past Medical History Past Medical History: Asthma, COPD, Skin Disorder Additional Past Medical History / Comment(s): cerebral palsy History of Any Multi-Drug Resistant Organisms: None Reported Past Surgical History: No Surgical Hx Reported Additional Past Surgical History / Comment(s): mass removed from left lung Past Psychological History: ADD/ADHD, Anxiety, Depression Smoking Status: Current every day smoker Past Alcohol Use History: None Reported Past Drug Use History: Cocaine, Marijuana, Methamphetamine General Exam - General Exam Comments Initial Comments: Physical Exam GENERAL: Patient is in a tripod position drooling in moderate discomfort HENT: Normocephalic, Atraumatic. EYES: PERRL, EOMI PULMONARY: Unlabored respirations Mild expiratory wheezing CARDIOVASCULAR: RRR Warm and well perfused extremities ABDOMEN: Non-distended SKIN: No rashes or bruising : Deferred NEUROLOGIC: Alert and oriented MUSCULOSKELETAL: Moving all extremities with no apparent injury PSYCHIATRIC: No SI/HI Course Vital Signs 10/07/23 10/08/23 10/08/23 23:46 00:57 01:55 Temperature 97.6 F Pulse Rate 102 H 86 80 Respiratory 24 18 17 Rate Blood Pressure 138/90 109/73 129/85 O2 Sat by Pulse 99 100 97 Oximetry Medical Decision Making - Medical Decision Making Was pt. sent in by a medical professional or institution (, PA, AIRCRAFT ORDNANCE TECHNICIAN, urgent care, hospital, or halfway...) When possible be specific @ -No Did you speak to anyone other than the patient for history (EMS, parent, family, police, friend...)? What history was obtained from this source @ -No Did you review nursing and triage notes (agree or disagree)? Why? @ -I reviewed and agree with nursing and triage notes Were old charts reviewed (outside hosp., previous admission, EMS record, old EKG, old radiological studies, urgent care reports/EKG's, halfway records)? Report findings @ -No old charts were reviewed Differential Diagnosis (chest pain, altered mental status, abdominal pain women, abdominal pain men, vaginal bleeding, weakness, fever, dyspnea, syncope, headache, dizziness, GI bleed, back pain, seizure, CVA, palpatations, mental health)? @ -Not applicable EKG interpreted by me (3pts min.). @ -As above X-rays interpreted by me (1pt min.). @ -None done CT interpreted by me (1pt min.). @ -None done U/S interpreted by me (1pt. min.). @ -None done What testing was considered but not performed or refused? (CT, X-rays, U/S, labs)? Why? @ -None What meds were considered but not given or refused? Why? @ -None Did you discuss the management of the patient with other professionals (professionals i.e. , PA, AIRCRAFT ORDNANCE TECHNICIAN, lab, RT, psych nurse, social worker masters, automatic hemmer, teacher, community service officer, case technician)? Give summary @ -No Was smoking cessation discussed for >3mins.? @ -No Was critical care preformed (if so, how long)? @Yes, 35 minutes Were there social determinants of health that impacted care today? How? (Homelessness, low income, unemployed, alcoholism, drug addiction, transportation, low edu. Level, literacy, decrease access to med. care, [facility], rehab)? @ -No Was there de-escalation of care discussed even if they declined (Discuss DNR or withdrawal of care, Hospice)? DNR status @ -No What co-morbidities impacted this encounter? (DM, HTN, Smoking, COPD, CAD, Cancer, CVA, ARF, Chemo, Hep., AIDS, mental health diagnosis, sleep apnea, morbid obesity)? @ -None Was patient admitted / discharged? Hospital course, mention meds given and route, prescriptions, significant lab abnormalities, going to OR and other pertinent info. @ -Discharged Patient was seen and evaluated patient was in moderate distress due to esophageal food bolus I have no concern for this being in the airway, patient was given glucagon and Ativan. He had no relief. After 90 minutes I spoke with Dr. Bright who agreed with plan for observation overnight and scope in the morning. Patient was given bhavya manoj and shortly after called out that he was feeling all better that his symptoms had completely resolved he drank a Pepsi and discharged home. Undiagnosed new problem with uncertain prognosis? @ -No Drug Therapy requiring intensive monitoring for toxicity (Heparin, Nitro, Insulin, Cardizem)? @ -No Were any procedures done? @ -No Diagnosis/symptom? @ -Esophageal food bolus Acute, or Chronic, or Acute on Chronic? @ -Acute Uncomplicated (without systemic symptoms) or Complicated (systemic symptoms)? @ -Default Side effects of treatment? @ -No Exacerbation, Progression, or Severe Exacerbation? @ -No Poses a threat to life or bodily function? How? (Chest pain, [place], [place], pneumonia, PE, COPD, DKA, ARF, appy, cholecystitis, CVA, Diverticulitis, Homicidal, Suicidal, threat to staff... and all critical care pts) @ -Unlikely Disposition Clinical Impression: Food impaction of esophagus Disposition: HOME SELF-CARE Condition: Stable Is patient prescribed a controlled substance at d/c from ED?: No
--- NOTE | 2023-10-08 00:13 | XR ---
EXAMINATION TYPE: XR chest 1V DATE OF EXAM: 10/08/2023 COMPARISON: Chest x-ray September 03, 2022 HISTORY: Rib bone in throat TECHNIQUE: Single frontal view of the chest is obtained. FINDINGS: There is no suspicious new focal air space opacity, pleural effusion, or pneumothorax seen . The cardiac silhouette size is stable and within normal limits. The osseous structures are intac t. IMPRESSION: No acute process.
--- NOTE | 2023-10-08 00:15 | XR ---
EXAMINATION TYPE: XR soft tissue neck DATE OF EXAM: 10/08/2023 COMPARISON: CT neck May 01, 2016 HISTORY: Rib bone in throat TECHNIQUE: 2 view soft tissue neck. FINDINGS: There is at least partial ossification of the omohyoid ligament redemonstrated. No definiti ve radiodense hypopharyngeal foreign body. No suspicious prevertebral soft tissue swelling. Concentri c narrowing of the subglottic airway is identified. Overlying soft tissue is unremarkable. IMPRESSION: As above.
[2023-10-08] MEDS: GLUCAGON 1 MG/ML VIAL SQ STA (00:28)
[2023-10-08] MEDS ORDERED: NALOXONE 0.4 MG/ML 1 ML VIAL IV PRN (00:48)
[2023-10-08] MEDS: SODIUM CHLORIDE 0.9% 1,000 ML IV SCH (00:54)
[2023-10-08] MEDS: LORazepam 2 MG/ML INJ IV STA (00:54)
[2023-10-08 01:57] VITALS: BP 129/85; PULSE 80; RESP 17
== END 2023-10-08 01:55 | disposition home or self-care (01) ==
LOC: EC 23:43 → 6NMEDSUR 10-08 00:50
PROVIDERS: ADMIT Family Medicine; ATTEND Family Medicine
DX: T18.128A Food in esophagus causing other injury, initial encounter (principal); W44.F3XA Food entering into or through a natural orifice, initial encounter; J44.9 Chronic obstructive pulmonary disease, unspecified; F32.A Depression, unspecified; F41.9 Anxiety disorder, unspecified; F17.200 Nicotine dependence, unspecified, uncomplicated; Z79.51 Long term (current) use of inhaled steroids; Z79.899 Other long term (current) drug therapy; Z91.040 Latex allergy status
CPT/HCPCS: 96374; 99285; 70360; 71045; G0378; J2060; J1610

== ENCOUNTER 2023-10-13 18:07 | Inpatient (IN) | payer MEDICAID, OTHER ==
[2023-10-13] MEDS: LORazepam 0.5 MG TAB PO STA (19:16)
--- NOTE | 2023-10-13 19:25 | ED ---
General Adult HPI - General Chief complaint: Psychiatric Symptoms Stated complaint: Court Order Time Seen by Provider: 10/13/23 18:32 Source: patient, police, RN notes reviewed, old records reviewed Mode of arrival: ambulatory - History of Present Illness Initial comments: Patient is a 33-year-old male who presents emergency department for mental health evaluation. Had a court ordered petition. Was brought in for evaluation. Petition completed by patient's grandmother and in summary she is concerned that patient is going to hurt himself as he has been having meltdowns, seems to be delusional, and is threatening to kill himself per petition. Presents for further evaluation at this time. Patient denies this but is cooperative. Denies any homicidal or suicidal ideations. Denies any hallucinations. States he does not take any medications at home. Presents for further evaluation at this time. - Related Data Home Medications Medication Instructions Recorded Confirmed Albuterol Inhaler [Ventolin Hfa 2 puff INHALATION RT-Q6H PRN 09/03/22 10/13/23 Inhaler] Allergies Allergy/AdvReac Type Severity Reaction Status Date / Time bee venom protein (honey bee) Allergy Unknown Verified 10/13/23 19:31 diphenhydramine HCl Allergy Unknown Verified 10/13/23 19:31 [From Benadryl] latex Allergy Rash/Hives Verified 10/13/23 19:31 peanut Allergy Anaphylaxis Verified 10/13/23 19:31 peas Allergy Swelling Verified 10/13/23 19:31 Penicillins Allergy Anaphylaxis Verified 10/13/23 19:31 quetiapine fumarate Allergy Unknown Verified 10/13/23 19:31 [From Seroquel] Review of Systems ROS Statement: Those systems with pertinent positive or pertinent negative responses have been documented in the HPI. Review of Systems: CONST: Denies fever EYES: Denies blurry vision ENT: Denies nasal congestion C/V: Denies Chest pain RESP: Denies shortness of breath GI: Denies abdominal pain : Denies dysuria SKIN: Denies rash. MSK: Denies joint pain. NEURO: Denies headache ROS Other: All systems not noted in ROS Statement are negative. Past Medical History Past Medical History: Asthma, COPD, Skin Disorder Additional Past Medical History / Comment(s): cerebral palsy History of Any Multi-Drug Resistant Organisms: None Reported Past Surgical History: No Surgical Hx Reported Additional Past Surgical History / Comment(s): mass removed from left lung Past Psychological History: ADD/ADHD, Anxiety, Depression Smoking Status: Current every day smoker Past Alcohol Use History: None Reported Past Drug Use History: Cocaine, Marijuana, Methamphetamine General Exam - General Exam Comments Initial Comments: General: Appears in no acute distress. HEAD: Normal with no signs of head trauma. EYES: EOMI. ENT: Hearing grossly intact. RESPIRATORY: No respiratory distress. Clear breath sounds bilaterally. C/V: Regular rate and rhythm. ABD: Abdomen is nondistended. EXT: No obvious deformity. SKIN: No rashes or lesions observed on exposed skin. NEURO: Alert and oriented. Course Vital Signs 10/13/23 10/13/23 18:33 22:06 Temperature 98.4 F 98.9 F Pulse Rate 79 81 Respiratory 18 16 Rate Blood Pressure 116/74 135/78 O2 Sat by Pulse 98 98 Oximetry Medical Decision Making - Medical Decision Making Was pt. sent in by a medical professional or institution (, PA, MOBILE PET GROOMER, urgent care, hospital, or fpc...) When possible be specific @ -No Did you speak to anyone other than the patient for history (EMS, parent, family, police, friend...)? What history was obtained from this source @ -No Did you review nursing and triage notes (agree or disagree)? Why? @ -I reviewed and agree with nursing and triage notes Were old charts reviewed (outside hosp., previous admission, EMS record, old EKG, old radiological studies, urgent care reports/EKG's, fpc records)? Report findings @ -Reviewed court ordered petition which describes the concern for self-harm from patient's grandmother. Differential Diagnosis (chest pain, altered mental status, abdominal pain women, abdominal pain men, vaginal bleeding, weakness, fever, dyspnea, syncope, headache, dizziness, GI bleed, back pain, seizure, CVA, palpatations, mental health, musculoskeletal)? @ -Differential Mental Health Depression, anxiety, bipolar, psychosis, schizophrenia, borderline personality, situational depression, adjustment disorder, behavioral disorder, brain tumor, malingering, substance abuse, encephalopathy, medication reaction, dementia, hypothyroidism, degenerative neurologic disorder, lupus.... This is not meant to be all-inclusive list EKG interpreted by me (3pts min.). @ -None done X-rays interpreted by me (1pt min.). @ -None done CT interpreted by me (1pt min.). @ -None done U/S interpreted by me (1pt. min.). @ -None done What testing was considered but not performed or refused? (CT, X-rays, U/S, labs)? Why? @ -None What meds were considered but not given or refused? Why? @ -None Did you discuss the management of the patient with other professionals (professionals i.e. , PA, MOBILE PET GROOMER, lab, RT, psych nurse, social sciences professor, die repairer forging, teacher, retail loss prevention officer, high risk case manager)? Give summary @ -EPS notified of the consult Was smoking cessation discussed for >3mins.? @ -No Was critical care preformed (if so, how long)? @ -No Were there social determinants of health that impacted care today? How? (Homelessness, low income, unemployed, alcoholism, drug addiction, transportation, low edu. Level, literacy, decrease access to med. care, long term, rehab)? @ -No Was there de-escalation of care discussed even if they declined (Discuss DNR or withdrawal of care, Hospice)? DNR status @ -No What co-morbidities impacted this encounter? (DM, HTN, Smoking, COPD, CAD, Cancer, CVA, ARF, Chemo, Hep., AIDS, mental health diagnosis, sleep apnea, morbid obesity)? @ -None Was patient admitted / discharged? Hospital course, mention meds given and route, prescriptions, significant lab abnormalities, going to OR and other pertinent info. @ -Based on patient's presentation and physical exam, was brought here under court order for petition completed by his grandmother. Suicide precautions ordered. Sitter ordered. Patient will be given a small dose of oral Ativan at his request. BAT is 0. UDS is pending. Vital signs within acceptable limits. At this time, patient is medically cleared for evaluation by psychiatry. Disposition pending psychiatric evaluation. EPS notified of the consult. EPS Kaye evaluate the patient and determined that he does meet inpatient criteria for psychiatry. Clinical certificate completed by myself. Undiagnosed new problem with uncertain prognosis? @ -No Drug Therapy requiring intensive monitoring for toxicity (Heparin, Nitro, Insulin, Cardizem)? @ -No Were any procedures done? @ -No Diagnosis/symptom? @ -Suicidal ideation Acute, or Chronic, or Acute on Chronic? @ -Acute Uncomplicated (without systemic symptoms) or Complicated (systemic symptoms)? @ -Complicated Side effects of treatment? @ -None Exacerbation, Progression, or Severe Exacerbation] @ -No Poses a threat to life or bodily function? @ -Yes - Lab Data Lab Results 10/13/23 Range/Units 19:06 Urine Opiates Screen Not Detected (NotDetected) Ur Oxycodone Screen Not Detected (NotDetected) Urine Methadone Screen Not Detected (NotDetected) Ur Barbiturates Screen Not Detected (NotDetected) U Tricyclic Antidepress Not Detected (NotDetected) Ur Phencyclidine Scrn Not Detected (NotDetected) Ur Amphetamines Screen Detected H (NotDetected) U Methamphetamines Scrn Detected H (NotDetected) U Benzodiazepines Scrn Not Detected (NotDetected) Urine Cocaine Screen Detected H (NotDetected) U Marijuana (THC) Screen Detected H (NotDetected) Disposition Clinical Impression: Suicidal ideation Disposition: TRANSFER TO PSYCH HOSP/UNIT Condition: Stable Referrals: Casey Arzate MD [Primary Care Provider] - 1-2 days
[2023-10-13 20:51] LABS: Amphetamine Screen,Urine Detected (NotDetected); Barbiturate Screen,Urine Not Detected (NotDetected); Benzodiazepines Screen,Urine Not Detected (NotDetected); Cocaine Screen,Urine Detected (NotDetected); Methadone Screen, Urine Not Detected (NotDetected); Opiate Screen,Urine Not Detected (NotDetected); Oxycodone Screen, Urine Not Detected (NotDetected); Phencyclidine Screen,Urine Not Detected (NotDetected); Tricyclic Antidepressant,Urine Not Detected (NotDetected); Urn Cannabinoid Scrn Detected (NotDetected)
[2023-10-14] MEDS: LORazepam 2 MG/ML INJ IM STA (02:13)
[2023-10-14] MEDS: HALOPERIDOL LACTATE 5 MG/ML 1 ML VIAL IM STA (02:58)
--- NOTE | 2023-10-14 03:28 | ED ---
Medical Decision Making - Medical Decision Making I am called to the room after the patient becomes aggressive with staff. He is verbally threatening staff and threatening to harm himself. He does require restraints and chemical sedation. - Lab Data Lab Results 10/13/23 Range/Units 19:06 Urine Opiates Screen Not Detected (NotDetected) Ur Oxycodone Screen Not Detected (NotDetected) Urine Methadone Screen Not Detected (NotDetected) Ur Barbiturates Screen Not Detected (NotDetected) U Tricyclic Antidepress Not Detected (NotDetected) Ur Phencyclidine Scrn Not Detected (NotDetected) Ur Amphetamines Screen Detected H (NotDetected) U Methamphetamines Scrn Detected H (NotDetected) U Benzodiazepines Scrn Not Detected (NotDetected) Urine Cocaine Screen Detected H (NotDetected) U Marijuana (THC) Screen Detected H (NotDetected) Disposition Clinical Impression: Suicidal ideation Disposition: TRANSFER TO PSYCH HOSP/UNIT Condition: Stable Referrals: Casey Arzate MD [Primary Care Provider] - 1-2 days Procedures - Restraint - Face to Face Restraint Occurrence 1 Patient's Immediate Situation: Endangers self safety, Endangers others' safety Patient's Reaction to the Intervention: Aggressive, Combative Patient's Medical & Behavioral Condition: Agitated, Manic Need to Continue or Terminate Restraint or Seclusion: Continue Face to Face Eval of Restraint Date: 10/14/23 Face to Face Eval of Restraint Time: 02:31
[2023-10-14] MEDS ORDERED: ACETAMINOPHEN TAB 325 MG TAB PO PRN (17:28)
[2023-10-14] MEDS ORDERED: HALOPERIDOL LACTATE 5 MG/ML 1 ML VIAL IM PRN (17:28)
[2023-10-14] MEDS ORDERED: IBUPROFEN 600 MG TAB PO PRN (17:28)
[2023-10-14] MEDS ORDERED: MAG HYDROX/AL HYDROX/SIMETH 355 ML BOTTLE PO PRN (17:28)
[2023-10-14] MEDS ORDERED: MAGNESIUM HYDROXIDE 2,400 MG/30 ML CUP PO PRN (17:28)
[2023-10-14] MEDS ORDERED: LORazepam 2 MG/ML INJ IM PRN (17:33)
[2023-10-14] MEDS ORDERED: ALBUTEROL NEBULIZED 2.5 MG/3 ML INHALATION PRN (17:34)
[2023-10-15] MEDS: NICOTINE 14MG/24HR PATCH TRANSDERM SCH (09:20)
[2023-10-15] MEDS: haloperidoL 5 MG TAB PO PRN (09:28)
[2023-10-15] MEDS: LORazepam 1 MG TAB PO PRN (09:28)
[2023-10-15] MEDS: ALBUTEROL INHALER 60 PUFF/8 GM INHALER (MHU) INHALATION PRN (09:34)
[2023-10-15 09:49] LABS: Basophils % (A) 1 %; Eosinophils # (A) 0.6 k/uL (0-0.7); Eosinophils % (A) 9 %; HCT 51.9 % (39.0-53.0); HGB 17.3 gm/dL (13.0-17.5); Lymphocytes # (A) 1.2 k/uL (1.0-4.8); Lymphocytes % (A) 18 %; MCH 30.2 pg (25.0-35.0); MCHC 33.2 g/dL (31.0-37.0); MCV 90.7 fL (80.0-100.0); Mean Platelet Volume 8.2; Monocytes # (A) 0.6 k/uL (0-1.0); Monocytes % (A) 9 %; Neutrophils % (A) 63 %; Platelet Count 233 k/uL (150-450); RBC 5.72 m/uL (4.30-5.90); RDW 12.9 % (11.5-15.5); WBC 6.5 k/uL (3.8-10.6)
[2023-10-15 10:06] LABS: ALT 24 U/L (4-49); AST 33 U/L (17-59); African American GFR (CKD) >90 (>60 ml/min/1.73 sqM); Alkaline Phosphatase 72 U/L (38-126); Anion Gap 6 mmol/L; Blood Urea Nitrogen 13 mg/dL (9-20); Calcium 9.2 mg/dL (8.4-10.2); Carbon Dioxide 27 mmol/L (22-30); Chloride 104 mmol/L (98-107); Glucose 156 mg/dL (74-99); Non-African American GFR(CKD) >90 (>60 ml/min/1.73 sqM); Potassium 4.1 mmol/L (3.5-5.1); Sodium 137 mmol/L (137-145); Total Bilirubin 0.9 mg/dL (0.2-1.3); Total Protein 6.8 g/dL (6.3-8.2)
[2023-10-15 12:40] LABS: Bilirubin, Delta 0.4 mg/dL (0.0-0.2); Bilirubin,Unconjugated 0.5 mg/dL (0.0-1.1)
[2023-10-15] MEDS: OLANZapine 5 MG TAB PO ONE (12:45)
[2023-10-15] MEDS: QUEtiapine 25 MG TAB PO STA (12:45)
[2023-10-15] MEDS: DIVALPROEX ER 250 MG TAB.ER.24H PO SCH (12:45)
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
[2023-10-15] MEDS: SYMBICORT 80-4.5 MCG INHALER INHALATION SCH (13:41)
--- NOTE | 2023-10-15 18:44 | P.HPIM ---
History of Present Illness H&P Date: 10/15/23 Chief Complaint: Depression This is a 33-year-old gentleman with past medical history significant for morbid obesity, asthma, anxiety, depression, nicotine dependent, polysubstance abuse including cocaine, marijuana methamphetamine and multiple other medical issues , court petitioned brought into the hospital for mental health evaluation. Denied hallucinations, homicidal or suicidal ideations .Became aggressive , verbally abusive with ER staff and threatened to harm himself.required restraints and chemical sedation .toxicology screen reported amphetamines, methamphetamines, cocaine and marijuana. Viral studies negative. Hematology, chemistry panels unremarkable. Reports allergies, denies cough or congestion. Denies chest pain, palpitations or shortness of breath. Maintaining O2 sats in the high 90s on room air. Review of Systems ROS Statement: Those systems with pertinent positive or pertinent negative responses have been documented in the HPI. ROS Other: All systems not noted in ROS Statement are negative. Past Medical History Past Medical History: Asthma, COPD, Skin Disorder Additional Past Medical History / Comment(s): cerebral palsy, psoriasis History of Any Multi-Drug Resistant Organisms: None Reported Past Surgical History: No Surgical Hx Reported Additional Past Surgical History / Comment(s): mass removed from left lung Past Psychological History: ADD/ADHD, Anxiety, Depression Smoking Status: Current every day smoker Past Alcohol Use History: None Reported Past Drug Use History: Cocaine, Marijuana, Methamphetamine Medications and Allergies Home Medications Medication Instructions Recorded Confirmed Type Albuterol Inhaler [Ventolin Hfa 2 puff INHALATION RT-Q6H PRN 09/03/22 10/13/23 History Inhaler] Allergies Allergy/AdvReac Type Severity Reaction Status Date / Time bee venom protein (honey bee) Allergy Unknown Verified 10/13/23 19:31 diphenhydramine HCl Allergy Unknown Verified 10/13/23 19:31 [From Benadryl] latex Allergy Rash/Hives Verified 10/13/23 19:31 peanut Allergy Anaphylaxis Verified 10/13/23 19:31 peas Allergy Swelling Verified 10/13/23 19:31 Penicillins Allergy Anaphylaxis Verified 10/13/23 19:31 quetiapine fumarate Allergy Unknown Verified 10/13/23 19:31 [From Seroquel] Physical Exam Vitals: Vital Signs Temp Pulse Resp BP Pulse Ox 10/15/23 06:44 97.9 F 72 16 116/59 10/14/23 19:18 98.3 F 88 20 118/65 96 General: well nourished, well developed, NAD. Impulsive, paranoid. vitals reviewed Eyes: PERRL, EOMI, conjunctiva normal HENT: normocephalic, mucus membranes moist Neck: supple, no JVD Lungs: normal respiratory effort, equal air entry, fine expiratory wheezing CV: Regular rate and rhythm, no murmur. Peripheral pulses 2+ Abdomen: soft, nondistended, no organomegaly. Skin: warm and dry. Neuro: A&Ox3, depressed mood and affect. Results CBC & Chem 7: 10/15/23 08:50 10/15/23 08:50 Labs: Abnormal Lab Results - Last 24 Hours (Table) 10/15/23 Range/Units 08:50 Glucose 156 H (74-99) mg/dL Delta Bilirubin 0.4 H (0.0-0.2) mg/dL Thrombosis Risk Factor Assmnt - Choose All That Apply Any of the Below Risk Factors Present?: Yes Each Factor Represents 1 point: Varicose veins Other Risk Factors: No Other congenital or acquired thrombophilia - If yes, enter type in comment: No Thrombosis Risk Factor Assessment Total Risk Factor Score: 1 Thrombosis Risk Factor Assessment Level: Low Risk Assessment and Plan Assessment: Suicidal ideation Mood disorder, unspecified Polysubstance abuse, UDS positive for amphetamines, methamphetamines, cocaine and marijuana Morbidly obese, BMI 31 Asthma, chronic, seasonal allergies ,stable. Plan: Continue on current medication regimen ,monitoring and symptomatic treatment. Patient's home medication -albuterol inhaler has been resumed .Claritin, Symbicort ordered. The impression and plan of care has been dictated as directed. : I performed a history and examination of this patient, discussed the same with the dictator. I agree with the dictator's note ,documented as a scribe. Any additional findings or plans will be noted.
[2023-10-15 19:54] LABS: Chol/HDL Ratio 3.83 Ratio; LDL Cholesterol,Calculated 85.5 mg/dL (0.0-131.0)
[2023-10-15] MEDS ORDERED: QUEtiapine 50 MG TAB PO SCH (21:00)
[2023-10-15] MEDS: OLANZapine 5 MG TAB PO SCH (22:31)
[2023-10-15] MEDS: LORATADINE 10 MG TAB PO SCH (22:32)
--- NOTE | 2023-10-16 11:08 | P.PN ---
Progress Note - Text Progress Note Date: 10/16/23 Interval History: Patient was seen laying in bed today and was directable and agreeable to speak with pattern chart writer. Patient continues to perseverate on discharge. We spoke briefly about the court process and the need for him to speak with the assistant prosecuting attorney, he agreed. He appeared to be mildly less irritable and impulsive today. Denied any problems with medications at this time and claims that he will continue to take them. He continues to weep at times and has childish tone. He is denying any depression or anxiety at this time. Continues to have very limited/poor insight and judgment. Claims that he slept fairly last night. Has been mainly staying in his room. At this time patient denies any suicidal or homical ideations, intent or plan. Patient denies any auditory, visual hallucinations and denies any paranoia or delusions. Patient denies any side effects from the medications and has been compliant with meds. MENTAL STATUS EXAM: General Appearance: Patient appears to be stated age is alert, directable, and attempts to cooperate. Patient appears to have mildly improving hygiene and grooming. Dirty hands and fingernails. Broken glasses, held together by a rubber band. Behavior: Patient is seated mostly without any agitated behavior.less crying spells Speech: Patient's speech is fluent and nonpressured. delayed Mood/Affect: Patient reports their mood is angry and frustrated, improving mildly, affect is congruent and labile Suicidality/Homicidality: Patient denies having any homicidal ideation intent or plan. Denies any suicidal ideations intent or plan Perceptions: Patient denies any visual hallucinations and denies any auditory hallucinations Though content/process: There is no evidence of any delusional thought content and thought process disorganized. On discharge. Memory and concentration: AOX3, grossly intact for the purposes of this session. Judgment and insight: Chronically poor/impulsive, improving mildly IMPRESSIONS: Mood disorder, unspecified intellectual disability methamphetamine use disorder cocaine use disorder nicotine dependance cannabis use disorder PLAN: -Patient is admitted under involuntary status to [facility]HU for stabilization of psychiatric symptoms and safety. Patient has not signed adult voluntary form and medication consent and is placed in patient's chart. A second certification was completed and along with petition will be filed for court. -Medications : Increase Depakote 500 mg daily for mood stabilization, Zyprexa 5mg qhs for mood stabilization/insomnia -Ativan and Haldol PRN for agitation/aggression -NRT - nicotine patch -SW on board for discharge planning. Encourage patient to participate in groups to work on coping skills. Will await deferral and court date. Likely discharge early next week if patient continues to take medications and improve psychiatrically and also signs deferral.
[2023-10-16] MEDS: NICOTINE GUM (POLACRILEX) 2 MG GUM BUCCAL PRN (11:43)
[2023-10-17] MEDS: DIVALPROEX ER 500 MG TAB.ER.24H PO SCH (09:02)
[2023-10-17] MEDS ORDERED: LITHIUM CARBONATE ER 450 MG TABLET.ER PO SCH (11:45)
--- NOTE | 2023-10-17 11:52 | P.PN ---
Progress Note - Text Progress Note Date: 10/17/23 Interval History: Patient was seen in group today and was directable and agreeable to speak with news writer. Patient states he is about the same today. He got tearful, and stated depakote makes him emotional. He is focused on discharge, and news writer explained the process to him. Patient verbalized understanding. He is denying any depression or anxiety at this time. Continues to have very limited/poor insight and judgment. Claims that he slept well last night. Has been more visible on the unit, and attending groups. Patient starts crying several times during the interview, when talking about discharge, his pets, and his grandmother coming to visit him. At this time patient denies any suicidal or homicidal ideations, intent or plan. Patient denies any auditory, visual hallucinations and denies any paranoia or delusions. Patient denies any side effects from the medications and has been compliant with meds. MENTAL STATUS EXAM: General Appearance: Patient appears to be stated age is alert, directable, and attempts to cooperate. Patient appears to have mildly improving hygiene and g rooming. Dirty hands and fingernails. Broken glasses, held together by a rubber band. Behavior: Patient is seated mostly without any agitated behavior, crying spells Speech: Patient's speech is fluent and nonpressured. delayed Mood/Affect: Patient reports their mood is angry and frustrated, improving mildly, affect is congruent and labile Suicidality/Homicidality: Patient denies having any homicidal ideation intent or plan. Denies any suicidal ideations intent or plan Perceptions: Patient denies any visual hallucinations and denies any auditory hallucinations Though content/process: There is no evidence of any delusional thought content and thought process disorganized. focused On discharge. Memory and concentration: AOX3, grossly intact for the purposes of this session. Judgment and insight: Chronically poor/impulsive, improving mildly IMPRESSIONS: Mood disorder, unspecified intellectual disability methamphetamine use disorder cocaine use disorder nicotine dependance cannabis use disorder PLAN: -Patient is admitted under involuntary status to [facility] for stabilization of psychiatric symptoms and safety. Patient has not signed adult voluntary form and medication consent and is placed in patient's chart. He has deferred with his divorce attorney -Medications :d/c Depakote add [place] 300mg daily mood stabilization, can either titrate up, vs adding small dose of zyprexa during the day if needed, Zyprexa 5mg qhs for mood stabilization/insomnia -Ativan and Haldol PRN for agitation/aggression -NRT - nicotine patch -SW on board for discharge planning. Encourage patient to participate in groups to work on coping skills. Patient deferred with his divorce attorney. Likely discharge friday next week if patient continues to take medications and improve psychiatrically
[2023-10-17] MEDS: LITHIUM CARBONATE 300 MG CAP PO SCH (12:06)
--- NOTE | 2023-10-18 08:23 | P.PN ---
Subjective Progress Note Date: 10/18/23 Principal diagnosis: Mood disorder NOS Subjective: Patient is that he slept well last night feels that his anxiety and agitation are calming down he did have to get up 3 times during the 19 urinated and drinking a lot more he was just started on lithium 300 mg. He also has Zypr exa at a rather low dose of 5. He is really interested in stabilizing and getting out of here early this week. He denies any suicidal or homicidal thoughts says he has a plan to go stay with his brother and he gets along well with his brother. Objective: Patient is alert cooperative good eye contact excellent sense of humor he is wearing the shirt with this scary looking face that says no lives matter and when I commented on that he laughed and said, "do you like it?" He is oriented came readily speech is normal no pressure. Assessment I think the medicine is working but he is young and a good-sized person and I'm not sure he does not tolerate the lithium with all that increase in urination. Plan: Increase Zyprexa to 10 at night will continue the lithium at 300 if he keeps urinating all the time we may have to give up on that. Objective - Vital Signs Vital signs: Vital Signs Temp 97.3 F L 10/18/23 06:52 Pulse 95 10/18/23 08:12 Resp 18 10/18/23 08:12 BP 106/58 10/18/23 06:52 Pulse Ox 100 10/18/23 08:12 FiO2 - Labs CBC & Chem 7: 10/15/23 08:50 10/15/23 08:50
[2023-10-18] MEDS: OLANZapine 10 MG TAB PO SCH (21:44)
[2023-10-19] MEDS ORDERED: LOPERAMIDE 2 MG CAP PO PRN (08:30)
--- NOTE | 2023-10-19 10:54 | P.PN ---
Subjective Progress Note Date: 10/19/23 Principal diagnosis: Mood disorder NOS Subjective: Patient says that he slept well last night, he feels that his anxiety and agitation are calming down. He has frequent urination seems to have decreased some although he is drinking a lot more since he was just started on lithium 300 mg. He also has Zyprexa at a rather low dose of 5. He is really interested in stabilizing and getting out of here early this week. He denies any suicidal or homicidal thoughts says he has a plan to go stay with his brother and he gets along well with his brother. Objective: Patient is alert cooperative good eye contact excellent sense of humor he is wearing the shirt with this scary looking face that says no lives matter and when I commented on that he laughed and said, "do you like it?" He is oriented came readily speech is normal no pressure. Assessment I think the medicine is working but he is young and a good-sized person so I increased the Zyprexa from 5-10 and he seems of tolerated this little early to assess the benefits. Plan: Continue Zyprexa to 10 at night will continue the lithium at 300 and get a level in the morning if he keeps urinating. Objective - Vital Signs Vital signs: Vital Signs Temp 97.8 F 10/19/23 06:40 Pulse 66 10/19/23 06:40 Resp 16 10/19/23 06:40 BP 137/62 10/19/23 06:40 Pulse Ox 100 10/18/23 08:12 FiO2 - Labs CBC & Chem 7: 10/15/23 08:50 10/15/23 08:50
--- NOTE | 2023-10-20 12:25 | P.PN ---
Progress Note - Text Progress Note Date: 10/20/23 Interval History: Patient was seen in group today and was directable and agreeable to speak with conventional underwriter. Patient states he is doing so much better today. He is denying any depression or anxiety at this time. Claims that he slept well last night. Has been more visible on the unit, and attending groups. Patient gets a little emotional when talking about rehab, and sharing in the groups. Reading Specialist talked to patient about attending rehab, patient states that he thinks he would like to go to rehab. At this time patient denies any suicidal or homicidal ideations, intent or plan. Patient denies any auditory, visual hallucinations and denies any paranoia or delusions. Patient denies any side effects from the medications and has been compliant with meds. MENTAL STATUS EXAM: General Appearance: Patient appears to be stated age is alert, directable, and attempts to cooperate. Patient appears to have mildly improving hygiene and grooming. Dirty hands and fingernails. Broken glasses, held together by a rubber band. Behavior: Patient is seated mostly without any agitated behavior, mildly tearful today, improving Speech: Patient's speech is fluent and nonpressured. delayed Mood/Affect: Patient reports their mood is much better affect is congruent . mildly improving Suicidality/Homicidality: Patient denies having any homicidal ideation intent or plan. Denies any suicidal ideations intent or plan Perceptions: Patient denies any visual hallucinations and denies any auditory hallucinations Though content/process: There is no evidence of any delusional thought content and thought process future orientated. focused On discharge. Memory and concentration: AOX3, grossly intact for the purposes of this session. Judgment and insight: Chronically poor/impulsive, improving mildly IMPRESSIONS: Mood disorder, unspecified intellectual disability methamphetamine use disorder cocaine use disorder nicotine dependance cannabis use disorder PLAN: -Patient is admitted under involuntary status to [facility]HU for stabilization of psychiatric symptoms and safety. Patient has not signed adult voluntary form and medication consent and is placed in patient's chart. He has deferred with his [place] attorney -Medications : increase [place] 450mg daily mood stabilization, add trazodone 50mg qhs prn for sleep. increase Zyprexa 15mg qhs for mood stabilization/insomnia -Ativan and Haldol PRN for agitation/aggression -NRT - nicotine patch -SW on board for discharge planning. Encourage patient to participate in groups to work on coping skills. Patient deferred with his [place] attorney. Likely discharge tomorrow if patient continues to take medications and continues to improve psychiatrically. will give resources for outpatient vs inpatient rehab for subtance use.
[2023-10-20] MEDS: LITHIUM CARBONATE 150 MG CAP PO STA (12:42)
[2023-10-20] MEDS: OLANZapine 5 MG TAB PO SCH (20:45)
[2023-10-20] MEDS: traZODone HCL 50 MG TAB PO PRN (20:45)
[2023-10-21 07:03] VITALS: BP 111/72; PULSE 72; RESP 16; TEMP 97.6
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
[2023-10-21] MEDS: LITHIUM CARBONATE ER 450 MG TABLET.ER PO SCH (08:31)
== END 2023-10-21 10:15 | disposition home or self-care (01) | DRG 754 ==
LOC: EC 18:07 → 3MHU 10-14 16:59
PROVIDERS: ADMIT Psychiatry & Neurology Psychiatry; ATTEND Psychiatry & Neurology Psychiatry
DX: F43.21 Adjustment disorder with depressed mood (principal); F79 Unspecified intellectual disabilities; F15.90 Other stimulant use, unspecified, uncomplicated; F14.90 Cocaine use, unspecified, uncomplicated; F12.90 Cannabis use, unspecified, uncomplicated; F17.200 Nicotine dependence, unspecified, uncomplicated; F90.9 Attention-deficit hyperactivity disorder, unspecified type; G80.9 Cerebral palsy, unspecified; I10 Essential (primary) hypertension; I25.10 Atherosclerotic heart disease of native coronary artery without angina pectoris; R45.851 Suicidal ideations; Z68.31 Body mass index [BMI] 31.0-31.9, adult; E66.01 Morbid (severe) obesity due to excess calories; Z78.1 Physical restraint status; Z79.899 Other long term (current) drug therapy
CPT/HCPCS: 80053; 80061; 80178; 80306; 82075; 82248; 83036; 84443; 85025; 87636; 96372; 99285

== ENCOUNTER 2023-11-25 07:09 | Emergency (ER) | payer OTHER ==
--- NOTE | 2023-11-25 07:40 | ED ---
General Adult HPI - General Chief complaint: Shortness of Breath Stated complaint: SHALINI Time Seen by Provider: 11/25/23 07:13 Source: patient, EMS Mode of arrival: EMS Limitations: no limitations - History of Present Illness Initial comments: Dictation was produced using Paltalk dictation software. please excuse any grammatical, word or spelling errors. Chief Complaint: 33-year-old male with history of asthma presents with shortness of breath History of Present Illness: Patient 33-year-old male denies any significant comorbidities presents to the ER for shortness of breath. Patient states he woke up this morning with some wheezing and dyspnea. He was looking for his inhaler when he could not find it. He called EMS and was brought to the ER. He received an albuterol treatment. No other medicines were given to the patient patient states that he felt better but still short of breath after the initial breathing treatment. The ROS documented in this emergency department record has been reviewed and confirmed by me. Those systems with pertinent positive or negative responses have been documented in the HPI. All other systems are other negative and/or noncontributory. - Related Data Previous Rx's Medication Instructions Recorded Albuterol Inhaler [Ventolin Hfa 2 puff INHALATION RT-Q6H PRN #1 10/21/23 Inhaler] each [place] Carbonate ER [Lithobid] 450 mg PO DAILY 30 Days #30 tab 10/21/23 Loratadine [Claritin] 10 mg PO DAILY 30 Days #30 tab 10/21/23 Nicotine Gum (Polacrilex) 2 mg BUCCAL Q4HR PRN 30 Days #180 10/21/23 [Nicorette] pieceofgum OLANZapine [ZyPREXA] 15 mg PO HS 30 Days #30 tablet 10/21/23 traZODone HCL [Desyrel] 50 mg PO HS PRN 30 Days #30 tab 10/21/23 Allergies Allergy/AdvReac Type Severity Reaction Status Date / Time bee venom protein (honey bee) Allergy Unknown Verified 11/25/23 07:17 diphenhydramine HCl Allergy Unknown Verified 11/25/23 07:17 [From Benadryl] latex Allergy Rash/Hives Verified 11/25/23 07:17 peanut Allergy Anaphylaxis Verified 11/25/23 07:17 peas Allergy Swelling Verified 11/25/23 07:17 Penicillins Allergy Anaphylaxis Verified 11/25/23 07:17 quetiapine fumarate Allergy Unknown Verified 11/25/23 07:17 [From Seroquel] Review of Systems ROS Statement: Those systems with pertinent positive or pertinent negative responses have been documented in the HPI. ROS Other: All systems not noted in ROS Statement are negative. Past Medical History Past Medical History: Asthma, COPD, Skin Disorder Additional Past Medical History / Comment(s): cerebral palsy, psoriasis History of Any Multi-Drug Resistant Organisms: None Reported Past Surgical History: No Surgical Hx Reported Additional Past Surgical History / Comment(s): mass removed from left lung Past Psychological History: ADD/ADHD, Anxiety, Depression Smoking Status: Current every day smoker Past Alcohol Use History: None Reported Past Drug Use History: Cocaine, Marijuana, Methamphetamine General Exam - General Exam Comments Initial Comments: PHYSICAL EXAM: General Impression: Alert and oriented x3, not in acute distress HEENT: Normocephalic atraumatic, extra-ocular movements intact, pupils equal and reactive to light bilaterally, mucous membranes moist. Cardiovascular: Heart regular rate and rhythm Chest: Diffuse rhonchi with auscultation Abdomen: abdomen soft, non-tender, non-distended, no organomegaly Musculoskeletal: Pulses present and equal in all extremities, no peripheral edema Motor: no focal deficits noted Neurological: CN II-XII grossly intact, no focal motor or sensory deficits noted Skin: Intact with no visualized rashes Psych: Normal affect and mood Limitations: no limitations Course Vital Signs 11/25/23 11/25/23 11/25/23 07:10 07:30 07:48 Temperature 97.9 F Pulse Rate 82 80 Respiratory 20 20 Rate Blood Pressure 132/108 132/108 O2 Sat by Pulse 100 Oximetry 11/25/23 11/25/23 11/25/23 08:00 08:13 08:33 Temperature Pulse Rate 82 73 75 Respiratory 18 17 Rate Blood Pressure 118/83 O2 Sat by Pulse Oximetry EKG Findings - EKG Comments: EKG Findings:: My EKG interpretation: Ventricular rate 71, sinus rhythm,. 182, QRS 94, QTc 366. No HI prolongation, no QTC prolongation, no ST or T-wave changes noted. Overall, this EKG is unremarkable Medical Decision Making - Medical Decision Making Was pt. sent in by a medical professional or institution (, PA, MANAGER COMPLETIONS, urgent care, hospital, or residential...) When possible be specific @ -No Did you speak to anyone other than the patient for history (EMS, parent, family, police, friend...)? What history was obtained from this source @ -No Did you review nursing and triage notes (agree or disagree)? Why? @ -I reviewed and agree with nursing and triage notes Were old charts reviewed (outside hosp., previous admission, EMS record, old EKG, old radiological studies, urgent care reports/EKG's, residential records)? Report findings @ -No old charts were reviewed Differential Diagnosis (chest pain, altered mental status, abdominal pain women, abdominal pain men, vaginal bleeding, musculoskeletal, weakness, fever, dyspnea, syncope, headache, dizziness, GI bleed, back pain, seizure, CVA, palpatations, mental health)? @ -Differential Dyspnea: Coronary syndrome, arrhythmia, tamponade, asthma, COPD, pulmonary embolism, pneumonia, pneumothorax, pulmonary effusion, anaphylaxis, diabetic ketoacidosis, flailed chest, pulmonary contusion, diaphragmatic rupture, anemia, neuromuscular, this is not meant to be an all-inclusive list. EKG interpreted by me (3pts min.). @ -See above X-rays interpreted by me (1pt min.). @ -Chest x-ray shows no acute processes CT interpreted by me (1pt min.). @ -None done U/S interpreted by me (1pt. min.). @ -None done What testing was considered but not performed or refused? (CT, X-rays, U/S, labs)? Why? @ -None What meds were considered but not given or refused? Why? @ -None Was smoking cessation discussed for >3mins.? @ -No Were there social determinants of health that impacted care today? How? (Homelessness, low income, unemployed, alcoholism, drug addiction, transportation, low edu. Level, literacy, decrease access to med. care, care home, rehab)? @ -No Was there de-escalation of care discussed even if they declined (Discuss DNR or withdrawal of care, Hospice)? DNR status @ -No What co-morbidities impacted this encounter? (DM, HTN, Smoking, COPD, CAD, Cancer, CVA, ARF, Chemo, Hep., AIDS, mental health diagnosis, sleep apnea, morbid obesity)? @ -None Was patient admitted / discharged? Hospital course, mention meds given and route, prescriptions, significant lab abnormalities, going to OR and other pertinent info. @ -33-year-old male with mild asthma exacerbation. Vital signs stable. Patient given breathing treatment steroids. Patient reevaluated bedside with resolution of his symptoms. Patient offered refill on his inhaler he refused. Patient agreeable for discharge. Advised follow-up with primary care doctor. Did you discuss the management of the patient with other professionals (professionals i.e. , PA, MANAGER COMPLETIONS, lab, RT, psych nurse, clinical social worker, cotton header, teacher, access control officer, showcase trimmer)? Give summary @ -No Was critical care preformed (if so, how long)? @ -No Undiagnosed new problem with uncertain prognosis? @ -No Drug Therapy requiring intensive monitoring for toxicity (Heparin, Nitro, Insulin, Cardizem)? @ -No Were any procedures done? @ -No Diagnosis/symptom? Acute, or Chronic, or Acute on Chronic? Uncomplicated (without systemic symptoms) or Complicated (systemic symptoms)? @ -Asthma exacerbation Side effects of treatment? @ -No Exacerbation, Progression, or Severe Exacerbation? @ -No Poses a threat to life or bodily function? How? (Chest pain, [place], [place], pneumonia, PE, COPD, DKA, ARF, appy, cholecystitis, CVA, Diverticulitis, Homicidal, Suicidal, threat to staff... and all critical care pts) @ -yes - Lab Data Lab Results 11/25/23 Range/Units 07:33 Influenza Type A (PCR) Not Detected (Not Detectd) Influenza Type B (PCR) Not Detected (Not Detectd) RSV (PCR) Not Detected (Not Detectd) SARS-CoV-2 (PCR) Not Detected (Not Detectd) Disposition Clinical Impression: Acute asthma exacerbation Disposition: HOME SELF-CARE Condition: Good Instructions (If sedation given, give patient instructions): Asthma (ED) Is patient prescribed a controlled substance at d/c from ED?: No Referrals: Casey Arzate MD [Primary Care Provider] - 1-2 days Time of Disposition: 09:27
[2023-11-25] MEDS: DEXAMETHASONE SOD PHOSPHATE 10 MG/ML 1 ML VIAL IV STA (07:41)
--- NOTE | 2023-11-25 08:08 | XR ---
EXAMINATION TYPE: XR chest 2V DATE OF EXAM: 11/25/2023 COMPARISON: 10/08/2023 HISTORY: Chest pain TECHNIQUE: Frontal and lateral views of the chest are obtained. FINDINGS: There is no focal air space opacity. No evidence for pneumothorax. No pleural effusion. The cardiac silhouette size is within normal limits. The osseous structures are grossly intact. IMPRESSION: 1. No acute cardiopulmonary process.
[2023-11-25] MEDS: ALBUTEROL NEBULIZED 2.5 MG/3 ML INHALATION STA (08:09)
[2023-11-25] MEDS: IPRATROPIUM 0.5 MG/2.5 ML NEBU INHALATION STA (08:09)
[2023-11-25 09:38] VITALS: BP 134/70; PULSE 78; RESP 18; TEMP 97.8
== END 2023-11-25 09:33 | disposition home or self-care (01) ==
LOC: EC 07:09
DX: J45.901 Unspecified asthma with (acute) exacerbation (principal); F17.200 Nicotine dependence, unspecified, uncomplicated; Z88.0 Allergy status to penicillin; Z88.8 Allergy status to other drugs, medicaments and biological substances; Z91.030 Bee allergy status; Z91.040 Latex allergy status
CPT/HCPCS: 94640; 93005; 87636; 71046; 99285; 96374; J1100

== ENCOUNTER 2024-02-23 18:56 | Emergency (ER) | payer OTHER ==
--- NOTE | 2024-02-23 19:45 | XR ---
EXAMINATION TYPE: XR chest 2V DATE OF EXAM: 02/23/2024 COMPARISON: 11/25/2023 HISTORY: 33 year-old male shortness of breath TECHNIQUE: PA and lateral views FINDINGS: The cardiomediastinal silhouette, aorta, and pulmonary vasculature are within normal limits. Some str taryn atelectasis at the lower lungs. Otherwise, lungs and pleural spaces are clear. IMPRESSION: Some strandy areas of atelectasis in the lower lungs. Otherwise, no acute process seen. [facility], , 02/23/2024 7:43 PM
--- NOTE | 2024-02-23 21:49 | ED ---
General Adult HPI - General Chief complaint: Shortness of Breath Stated complaint: Mental health SHALINI lundy Time Seen by Provider: 02/23/24 19:05 Source: patient, RN notes reviewed Mode of arrival: ambulatory Limitations: no limitations - History of Present Illness Initial comments: 33-year-old male presents emergency department with chief complaint of needing medications. Patient states that he does not have his prescription for lithium or his albuterol inhaler. Patient states that he recent got out of half-way. Patient states has been on lithium for a while he states he takes for 50 mg/day denies being suicidal homicidal patient denies any chest pain he does states he has intermittent shortness of breath. Patient states he is had no nausea vomiti ng no other complaints. - Related Data Previous Rx's Medication Instructions Recorded Loratadine [Claritin] 10 mg PO DAILY 30 Days #30 tab 10/21/23 Nicotine Gum (Polacrilex) 2 mg BUCCAL Q4HR PRN 30 Days #180 10/21/23 [Nicorette] pieceofgum OLANZapine [ZyPREXA] 15 mg PO HS 30 Days #30 tablet 10/21/23 traZODone HCL [Desyrel] 50 mg PO HS PRN 30 Days #30 tab 10/21/23 Albuterol Inhaler [Ventolin Hfa 2 puff INHALATION RT-Q6H PRN #1 02/23/24 Inhaler] each [place] Carbonate ER [Lithobid] 450 mg PO DAILY 30 Days #30 tab 02/23/24 Allergies Allergy/AdvReac Type Severity Reaction Status Date / Time bee venom protein (honey bee) Allergy Unknown Verified 02/23/24 19:02 diphenhydramine HCl Allergy Unknown Verified 02/23/24 19:02 [From Benadryl] latex Allergy Rash/Hives Verified 02/23/24 19:02 peanut Allergy Anaphylaxis Verified 02/23/24 19:02 peas Allergy Swelling Verified 02/23/24 19:02 Penicillins Allergy Anaphylaxis Verified 02/23/24 19:02 quetiapine fumarate Allergy Unknown Verified 02/23/24 19:02 [From Seroquel] Review of Systems ROS Statement: Those systems with pertinent positive or pertinent negative responses have been documented in the HPI. ROS Other: All systems not noted in ROS Statement are negative. Past Medical History Past Medical History: Asthma, COPD, Skin Disorder Additional Past Medical History / Comment(s): cerebral palsy, psoriasis History of Any Multi-Drug Resistant Organisms: None Reported Past Surgical History: No Surgical Hx Reported Additional Past Surgical History / Comment(s): mass removed from left lung Past Psychological History: ADD/ADHD, Anxiety, Depression Smoking Status: Current every day smoker Past Alcohol Use History: None Reported Past Drug Use History: Cocaine, Marijuana, Methamphetamine General Exam Limitations: no limitations General appearance: alert, in no apparent distress Head exam: Present: atraumatic, normocephalic, normal inspection Eye exam: Present: normal appearance, PERRL, EOMI. Absent: scleral icterus, conjunctival injection, periorbital swelling ENT exam: Present: normal exam, mucous membranes moist Neck exam: Present: normal inspection. Absent: tenderness, meningismus, lymphadenopathy Respiratory exam: Present: normal lung sounds bilaterally. Absent: respiratory distress, wheezes, rales, rhonchi, stridor Cardiovascular Exam: Present: regular rate, normal rhythm, normal heart sounds. Absent: systolic murmur, diastolic murmur, rubs, gallop, clicks Neurological exam: Present: alert, oriented X3, CN II-XII intact Skin exam: Present: warm, dry, intact, normal color. Absent: rash Course Vital Signs 02/23/24 18:58 Temperature 98.2 F Pulse Rate 97 Respiratory 20 Rate Blood Pressure 112/61 O2 Sat by Pulse 100 Oximetry Medical Decision Making - Medical Decision Making Was pt. sent in by a medical professional or institution (AMANDO Hernandez, LEAK GANG SUPERVISOR, urgent care, hospital, or snf...) When possible be specific @ -No Did you speak to anyone other than the patient for history (EMS, parent, family, police, friend...)? What history was obtained from this source @ -No Did you review nursing and triage notes (agree or disagree)? Why? @ -I reviewed and agree with nursing and triage notes Were old charts reviewed (outside hosp., previous admission, EMS record, old EKG, old radiological studies, urgent care reports/EKG's, snf records)? Report findings @ -No old charts were reviewed Differential Diagnosis (chest pain, altered mental status, abdominal pain women, abdominal pain men, vaginal bleeding, weakness, fever, dyspnea, syncope, headache, dizziness, GI bleed, back pain, seizure, CVA, palpatations, mental health, musculoskeletal)? @ -Asthma, medication refill, depression EKG interpreted by me (3pts min.). @ -None X-rays interpreted by me (1pt min.). @ -None done CT interpreted by me (1pt min.). @ -None done U/S interpreted by me (1pt. min.). @ -None done What testing was considered but not performed or refused? (CT, X-rays, U/S, labs)? Why? @ -None What meds were considered but not given or refused? Why? @ -None Did you discuss the management of the patient with other professionals (professionals i.e. Dr., PA, LEAK GANG SUPERVISOR, lab, RT, psych nurse, social service director, street flusher driver, teacher, patient transport officer, employment case manager)? Give summary @ -No Was smoking cessation discussed for >3mins.? @ -No Was critical care preformed (if so, how long)? @ -No Were there social determinants of health that impacted care today? How? (Homelessness, low income, unemployed, alcoholism, drug addiction, transportation, low edu. Level, literacy, decrease access to med. care, half-way, rehab)? @ -No Was there de-escalation of care discussed even if they declined (Discuss DNR or withdrawal of care, Hospice)? DNR status @ -No What co-morbidities impacted this encounter? (DM, HTN, Smoking, COPD, CAD, Cancer, CVA, ARF, Chemo, Hep., AIDS, mental health diagnosis, sleep apnea, morbid obesity)? @ -[Asthma, depression Was patient admitted / discharged? Hospital course, mention meds given and route, prescriptions, significant lab abnormalities, going to OR and other pertinent info. @ -Discharge patient presented for medication refill. Patient needs his lithium, albuterol inhaler this was refilled. Patient denies being suicidal homicidal patient offers no complaints. Undiagnosed new problem with uncertain prognosis? @ -No Drug Therapy requiring intensive monitoring for toxicity (Heparin, Nitro, Insulin, Cardizem)? @ -No Were any procedures done? @ -No Diagnosis/symptom? @ -Medication refill, depression, asthma Acute, or Chronic, or Acute on Chronic? @ -Acute Uncomplicated (without systemic symptoms) or Complicated (systemic symptoms)? @ -Uncomplicated Side effects of treatment? @ -No Exacerbation, Progression, or Severe Exacerbation? @ -No Poses a threat to life or bodily function? How? (Chest pain, [place], [place], pneumonia, PE, COPD, DKA, ARF, appy, cholecystitis, CVA, Diverticulitis, Homicidal, Suicidal, threat to staff... and all critical care pts) @ -No Disposition Clinical Impression: Depression, Medication refill, Asthma Disposition: HOME SELF-CARE Condition: Stable Additional Instructions: Please return to the Emergency Department if symptoms worsen or any other concerns. Prescriptions: [place] Carbonate ER [Lithobid] 450 mg PO DAILY 30 Days #30 tab Albuterol Inhaler [Ventolin Hfa Inhaler] 2 puff INHALATION RT-Q6H PRN #1 each PRN Reason: Shortness Of Breath Is patient prescribed a controlled substance at d/c from ED?: No Referrals: Casey Arzate MD [Primary Care Provider] - 1-2 days Time of Disposition: 21:49
[2024-02-23 21:57] VITALS: RESP 18
[2024-02-23 22:11] VITALS: BP 131/88; PULSE 79; TEMP 97.8
== END 2024-02-23 22:03 | disposition home or self-care (01) ==
LOC: EC 18:56
CPT/HCPCS: 71046; 99284

== ENCOUNTER 2024-05-20 15:53 | Emergency (ER) | payer OTHER ==
[2024-05-20 16:22] VITALS: TEMP 98.4
[2024-05-20] MEDS: ACETAMINOPHEN TAB 325 MG TAB PO STA (16:48)
[2024-05-20] MEDS: IBUPROFEN 800 MG TAB PO STA (16:49)
--- NOTE | 2024-05-20 17:28 | XR ---
EXAMINATION TYPE: XR ankle complete RT DATE OF EXAM: 05/20/2024 5:02 PM COMPARISON: None. CLINICAL INDICATION: Male, 33 years old with history of injury, pain TECHNIQUE: 3 view(s) obtained. FINDINGS: No acute fracture or dislocation evident. Ankle mortise is intact. There is soft tissue swelling over the lateral malleolus. Follow up exams can be performed 7-10 days from acute trauma for continued pain. IMPRESSION: 1. Soft tissue swelling over the lateral malleolus. [facility], , 05/20/2024 5:26 PM
--- NOTE | 2024-05-20 17:32 | ED ---
Lower Extremity Injury HPI - General Chief Complaint: Extremity Injury, Lower Stated Complaint: R ankle injury Time Seen by Provider: 05/20/24 16:18 Source: patient Mode of arrival: wheelchair Limitations: no limitations - History of Present Illness Initial Comments: 33-year-old male presenting with chief complaint of right ankle injury. Patient states he was sliding down a hill while standing on top of his slide. He then felt a pop in the right ankle. He has increased pain with weightbearing. States that he had to crawl around the hill to get help. No obvious deformity or bruising. Very mild swelling. There is diffuse tenderness - Related Data Previous Rx's Medication Instructions Recorded Loratadine [Claritin] 10 mg PO DAILY 30 Days #30 tab 10/21/23 Nicotine Gum (Polacrilex) 2 mg BUCCAL Q4HR PRN 30 Days #180 10/21/23 [Nicorette] pieceofgum OLANZapine [ZyPREXA] 15 mg PO HS 30 Days #30 tablet 10/21/23 traZODone HCL [Desyrel] 50 mg PO HS PRN 30 Days #30 tab 10/21/23 Albuterol Inhaler [Ventolin Hfa 2 puff INHALATION RT-Q6H PRN #1 02/23/24 Inhaler] each [place] Carbonate ER [Lithobid] 450 mg PO DAILY 30 Days #30 tab 02/23/24 Allergies Allergy/AdvReac Type Severity Reaction Status Date / Time bee venom protein (honey bee) Allergy Unknown Verified 02/23/24 19:02 diphenhydramine HCl Allergy Unknown Verified 02/23/24 19:02 [From Benadryl] latex Allergy Rash/Hives Verified 02/23/24 19:02 peanut Allergy Anaphylaxis Verified 02/23/24 19:02 peas Allergy Swelling Verified 02/23/24 19:02 Penicillins Allergy Anaphylaxis Verified 02/23/24 19:02 quetiapine fumarate Allergy Unknown Verified 02/23/24 19:02 [From Seroquel] Review of Systems ROS Statement: Those systems with pertinent positive or pertinent negative responses have been documented in the HPI. ROS Other: All systems not noted in ROS Statement are negative. Past Medical History Past Medical History: Asthma, COPD, Skin Disorder Additional Past Medical History / Comment(s): cerebral palsy, psoriasis History of Any Multi-Drug Resistant Organisms: None Reported Past Surgical History: No Surgical Hx Reported Additional Past Surgical History / Comment(s): mass removed from left lung Past Psychological History: ADD/ADHD, Anxiety, Depression Smoking Status: Current every day smoker Past Alcohol Use History: None Reported Past Drug Use History: Cocaine, Marijuana, Methamphetamine General Exam Limitations: no limitations General appearance: alert, in no apparent distress Head exam: Present: atraumatic, normocephalic, normal inspection Eye exam: Present: normal appearance, EOMI Neck exam: Present: normal inspection. Absent: meningismus Respiratory exam: Absent: respiratory distress Cardiovascular Exam: Present: regular rate Right Ankle exam: Present: normal inspection, tenderness, swelling. Absent: full ROM Neurovascular tendon exam: Present: no vascular compromise Neurological exam: Present: alert, oriented X3 Psychiatric exam: Present: normal affect, normal mood Skin exam: Present: warm, dry Course Vital Signs 05/20/24 05/20/24 16:17 17:50 Temperature 98.4 F 98.4 F Pulse Rate 94 86 Respiratory 20 19 Rate Blood Pressure 126/74 124/80 O2 Sat by Pulse 98 99 Oximetry Medical Decision Making - Medical Decision Making Was pt. sent in by a medical professional or institution (, PA, GARDEN MACHINERY MECHANIC, urgent care, hospital, or skilled nursing...) When possible be specific @ -No Did you speak to anyone other than the patient for history (EMS, parent, family, police, friend...)? What history was obtained from this source @ -No Did you review nursing and triage notes (agree or disagree)? Why? @ -I reviewed and agree with nursing and triage notes Were old charts reviewed (outside hosp., previous admission, EMS record, old EKG, old radiological studies, urgent care reports/EKG's, skilled nursing records)? Report findings @ -No old charts were reviewed Differential Diagnosis (chest pain, altered mental status, abdominal pain women, abdominal pain men, vaginal bleeding, weakness, fever, dyspnea, syncope, headache, dizziness, GI bleed, back pain, seizure, CVA, palpatations, mental health, musculoskeletal)? @ -Differential Musculoskeletal Muscular strain, contusion, ligament sprain, fracture, arthritis, septic arthritis, bursitis, cellulitis, muscle spasm, nerve compression, DVT, arterial occlusion, herpes zoster, electrolyte abnormality, tumor.... This is not meant to be in all inclusive list EKG interpreted by me (3pts min.). @ -As above X-rays interpreted by me (1pt min.). @ -X-ray negative for fracture or dislocation CT interpreted by me (1pt min.). @ -None done U/S interpreted by me (1pt. min.). @ -None done What testing was considered but not performed or refused? (CT, X-rays, U/S, labs)? Why? @ -None What meds were considered but not given or refused? Why? @ -None Did you discuss the management of the patient with other professionals (professionals i.e. , PA, GARDEN MACHINERY MECHANIC, lab, RT, psych nurse, dialysis social worker, x ray electronics wiring technician, teacher, corporate development officer, supervisor case loading)? Give summary @ -No Was smoking cessation discussed for >3mins.? @ -No Was critical care preformed (if so, how long)? @ -No Were there social determinants of health that impacted care today? How? (Homelessness, low income, unemployed, alcoholism, drug addiction, transportation, low edu. Level, literacy, decrease access to med. care, mcc, rehab)? @ -No Was there de-escalation of care discussed even if they declined (Discuss DNR or withdrawal of care, Hospice)? DNR status @ -No What co-morbidities impacted this encounter? (DM, HTN, Smoking, COPD, CAD, Cancer, CVA, ARF, Chemo, Hep., AIDS, mental health diagnosis, sleep apnea, morbid obesity)? @ -None Was patient admitted / discharged? Hospital course, mention meds given and route, prescriptions, significant lab abnormalities, going to OR and other pertinent info. @ -33-year-old male presenting with chief complaint of right ankle injury. He is neurovascularly intact. X-rays negative for fracture or dislocation. Patient is educated on ankle sprain and supportive management. Provided with crutches. follow-up with PCP. Report back to ER with any new or worsening symptoms. Discussed return parameters and answered all questions. Patient conveyed verbal understanding and agreed to the plan. I discussed this case in detail with my attending Dr. Anders Undiagnosed new problem with uncertain prognosis? @ -No Drug Therapy requiring intensive monitoring for toxicity (Heparin, Nitro, Insulin, Cardizem)? @ -No Were any procedures done? @ -No Diagnosis/symptom? @ -Ankle sprain Acute, or Chronic, or Acute on Chronic? @ -Acute Uncomplicated (without systemic symptoms) or Complicated (systemic symptoms)? @ -Uncomplicated Side effects of treatment? @ -No Exacerbation, Progression, or Severe Exacerbation? @ -No Poses a threat to life or bodily function? How? (Chest pain, [place], [place], pneumonia, PE, COPD, DKA, ARF, appy, cholecystitis, CVA, Diverticulitis, Homicidal, Suicidal, threat to staff... and all critical care pts) @ -Low likelihood Disposition Clinical Impression: Ankle sprain Disposition: HOME SELF-CARE Condition: Good Instructions (If sedation given, give patient instructions): Ankle Sprain (ED) Additional Instructions: Follow-up with PCP. Report back to ER with any new or worsening symptoms. Rest, ice, compress, elevate the ankle. Take Motrin and Tylenol as needed for pain control. Is patient prescribed a controlled substance at d/c from ED?: No Referrals: Casey Arzate MD [Primary Care Provider] - 1-2 days Time of Disposition: 17:31
[2024-05-20 17:53] VITALS: BP 124/80; PULSE 86; RESP 19
== END 2024-05-20 17:52 | disposition home or self-care (01) ==
LOC: EC 15:53
DX: S93.401A Sprain of unspecified ligament of right ankle, initial encounter (principal); F17.200 Nicotine dependence, unspecified, uncomplicated; Z88.0 Allergy status to penicillin; Z88.8 Allergy status to other drugs, medicaments and biological substances; Z91.030 Bee allergy status; Z91.040 Latex allergy status; Z91.010 Allergy to peanuts; X50.0XXA Overexertion from strenuous movement or load, initial encounter
CPT/HCPCS: 99283

== ENCOUNTER 2024-09-03 19:58 | Inpatient (IN) | payer MEDICAID, OTHER ==
--- NOTE | 2024-09-03 20:23 | ED ---
Psych HPI - General Chief Complaint: Psychiatric Symptoms Stated Complaint: Mental Health Petitioned Time Seen by Provider: 09/03/24 20:13 Source: patient, RN notes reviewed, old records reviewed Mode of arrival: ambulatory - History of Present Illness Initial Comments: This is a 34-year-old male petition for mental health evaluation, patient is here by court petition although he himself does deny suicidal or homicidal thoughts it is thought that he does have underlying suicidal intent, patient is court ordered for psychiatric evaluation with history of polysubstance abuse MD Complaint: altered mental status -: days(s) Associated Psychiatric Symptoms: racing thoughts, delusions History of same: Yes Quality: constant Improves With: none, medication Worsens With: none Associated Symptoms: denies other symptoms Treatments Prior to Arrival: placed on mental health hold If Self Harm: admits thoughts of self harm - Related Data Home Medications Medication Instructions Recorded Confirmed Dupilumab [Dupixent Pen] 300 mg SQ Q14D 09/04/24 09/04/24 Previous Rx's Medication Instructions Recorded Loratadine [Claritin] 10 mg PO DAILY 30 Days #30 tab 10/21/23 Albuterol Inhaler [Ventolin Hfa 2 puff INHALATION RT-Q6H PRN 30 09/08/24 Inhaler] Days #1 each Albuterol Inhaler [Ventolin Hfa 2 puff INHALATION RT-QID PRN each 09/08/24 Inhaler] Budesonide/Formoterol Fumarate 2 puff INHALATION RT-BID 30 Days 09/08/24 [Symbicort 160-4.5 Mcg Inhaler] each EPINEPHrine (Auto Inject) [Epipen] 0.3 mg IM ONCE PRN #1 each 09/08/24 Ipratropium-Albuterol Nebulize 3 ml INHALATION RT-QID PRN 30 Days 09/08/24 [Duoneb 0.5 mg-3 mg/3 ml Soln] each [place] Carbonate ER [Lithobid] 450 mg PO DAILY 30 Days #30 tab 09/08/24 Loratadine [Claritin] 10 mg PO DAILY #30 tab 09/08/24 Montelukast [Singulair] 10 mg PO HS 30 Days tab 09/08/24 chlorproMAZINE [Thorazine] 100 mg PO HS #30 tab 09/08/24 Allergies Allergy/AdvReac Type Severity Reaction Status Date / Time bee venom protein (honey bee) Allergy Unknown Verified 09/04/24 10:22 diphenhydramine HCl Allergy Unknown Verified 09/04/24 10:22 [From Benadryl] latex Allergy Rash/Hives Verified 09/04/24 10:22 peanut Allergy Anaphylaxis Verified 09/04/24 10:22 peas Allergy Swelling Verified 09/04/24 10:22 Penicillins Allergy Anaphylaxis Verified 09/04/24 10:22 quetiapine fumarate Allergy Unknown Verified 09/04/24 10:22 [From Seroquel] Review of Systems ROS Statement: Those systems with pertinent positive or pertinent negative responses have been documented in the HPI. ROS Other: All systems not noted in ROS Statement are negative. Past Medical History Past Medical History: Asthma, COPD, Skin Disorder Additional Past Medical History / Comment(s): cerebral palsy, psoriasis History of Any Multi-Drug Resistant Organisms: None Reported Past Surgical History: No Surgical Hx Reported Additional Past Surgical History / Comment(s): mass removed from left lung Past Psychological History: ADD/ADHD, Anxiety, Depression Smoking Status: Current every day smoker Past Alcohol Use History: None Reported Past Drug Use History: Cocaine, Marijuana, Methamphetamine General Exam General appearance: alert, in no apparent distress Head exam: Present: atraumatic, normocephalic, normal inspection Eye exam: Present: normal appearance, PERRL, EOMI. Absent: scleral icterus, conjunctival injection, periorbital swelling ENT exam: Present: normal exam, mucous membranes moist Neck exam: Present: normal inspection. Absent: tenderness, meningismus, lymphadenopathy Respiratory exam: Present: normal lung sounds bilaterally. Absent: respiratory distress, wheezes, rales, rhonchi, stridor Cardiovascular Exam: Present: regular rate, normal rhythm, normal heart sounds. Absent: systolic murmur, diastolic murmur, rubs, gallop, clicks GI/Abdominal exam: Present: soft, normal bowel sounds. Absent: distended, tenderness, guarding, rebound, rigid Extremities exam: Present: normal inspection, full ROM, normal capillary refill. Absent: tenderness, pedal edema, joint swelling, calf tenderness Back exam: Present: normal inspection Neurological exam: Present: alert, oriented X3, CN II-XII intact Psychiatric exam: Present: normal affect, normal mood Skin exam: Present: warm, dry, intact, normal color. Absent: rash Course Vital Signs 09/03/24 09/04/24 20:04 01:24 Temperature 98.8 F 97.2 F L Pulse Rate 97 Pulse Rate [ 86 Pulse Oximetery ] Respiratory 18 18 Rate Blood Pressure 121/66 Blood Pressure 116/73 [Right Arm] O2 Sat by Pulse 97 99 Oximetry - Reevaluation(s) Reevaluation #1: 09/03/24 20:29 Medical records reviewed Reevaluation #2: 09/03/24 20:29 Medically cleared for psychiatric evaluation Reevaluation #3: Differential Mental Health Depression, anxiety, bipolar, psychosis, schizophrenia, borderline personality, situational depression, adjustment disorder, behavioral disorder, brain tumor, malingering, substance abuse, encephalopathy, medication reaction, dementia, hypothyroidism, degenerative neurologic disorder, lupus.... This is not meant to be all-inclusive list Reevaluation #4: Was pt. sent in by a medical professional or institution (, PA, ROOF SHINGLER, urgent care, hospital, or usp...) When possible be specific @ -no Did you speak to anyone other than the patient for history (EMS, parent, family, police, friend...)? What history was obtained from this source @ -no Did you review nursing and triage notes (agree or disagree)? Why? @ -agree Are old charts reviewed (outside hosp., previous admission, EMS record, old EKG, old radiological studies, urgent care reports/EKG's, usp records)? Report findings @ -yes Differential Diagnosis (chest pain, altered mental status, abdominal pain women, abdominal pain men, vaginal bleeding, weakness, fever, dyspnea, syncope, headache, dizziness, GI bleed, back pain, seizure, CVA, palpatations, mental health, musculoskeletal)? @ -prior EKG interpreted by me (3pts min.). @ -no X-rays interpreted by me (1pt min.). @ -no CT interpreted by me (1pt min.). @ -no U/S interpreted by me (1pt. min.). @ -no What testing was considered but not performed or refused? (CT, X-rays, U/S, labs)? Why? @ -none What meds were considered but not given or refused? Why? @ -none Did you discuss the management of the patient with other professionals (professionals i.e. , PA, ROOF SHINGLER, lab, RT, psych nurse, clinical social work aide, seals engraver, teacher, medical officer, family independence case manager)? Give summary @ -no Was smoking cessation discussed for >3mins.? @ -no Was critical care preformed (if so, how long)? @ -no Were there social determinants of health that impacted care today? How? (Homelessness, low income, unemployed, alcoholism, drug addiction, transportation, low edu. Level, literacy, decrease access to med. care, correction, rehab)? @ -none Was there de-escalation of care discussed even if they declined (Discuss DNR or withdrawal of care, Hospice)? DNR status @ -no What co-morbidities impacted this encounter? (DM, HTN, Smoking, COPD, CAD, Cancer, CVA, ARF, Chemo, Hep., AIDS, mental health diagnosis, sleep apnea, morbid obesity)? @ -none Was patient admitted / discharged? Hospital course, mention meds given and route, prescriptions, significant lab abnormalities, going to OR and other pertinent info. @ - 34 male who needs inpatient psychiatric evaluation and treatment secondary to acute psychosis Transfer to psychiatric care Undiagnosed new problem with uncertain prognosis? @ -no Drug Therapy requiring intensive monitoring for toxicity (Heparin, Nitro, Insulin, Cardizem)? @ -no Were any procedures done? @ -no Diagnosis/symptom? @ -Acute psychosis with polysubstance abuse Acute, or Chronic, or Acute on Chronic? @ -Acute Uncomplicated (without systemic symptoms) or Complicated (systemic symptoms)? @ -Complicated Side effects of treatment? @ -no Exacerbation, Progression, or Severe Exacerbation? @ -exacerbation Poses a threat to life or bodily function? How? (Chest pain, [place], [place], pneumonia, PE, COPD, DKA, ARF, appy, cholecystitis, CVA, Diverticulitis, Homicidal, Suicidal, threat to staff... and all critical care pts) @ -no Medical Decision Making - Medical Decision Making 34 male who needs inpatient psychiatric evaluation and treatment secondary to acute psychosis - Lab Data Result diagrams: 09/05/24 08:22 09/05/24 08:22 Lab Results 09/03/24 Range/Units 22:59 SARS-CoV-2 (PCR) Not Detected (Not Detectd) Disposition Clinical Impression: Suicidal ideation, Unspecified mood [affective] disorder, Methamphetamine use disorder, moderate, Intellectual disability, Cannabis use disorder, Nicotine dependence, Cocaine use disorder Disposition: TRANSFER TO PSYCH HOSP/UNIT Condition: Fair
[2024-09-04] MEDS ORDERED: IBUPROFEN 600 MG TAB PO PRN (01:28)
[2024-09-04] MEDS ORDERED: MAGNESIUM HYDROXIDE 2,400 MG/30 ML CUP PO PRN (01:28)
[2024-09-04] MEDS ORDERED: OLANZapine 10 MG VIAL IM PRN (01:28)
[2024-09-04] MEDS ORDERED: LORazepam 2 MG/ML INJ IM PRN (01:28)
[2024-09-04] MEDS ORDERED: MAG HYDROX/AL HYDROX/SIMETH 355 ML BOTTLE PO PRN (01:28)
[2024-09-04] MEDS ORDERED: ACETAMINOPHEN TAB 325 MG TAB PO PRN (01:28)
[2024-09-04] MEDS ORDERED: ALBUTEROL NEBULIZED 2.5 MG/3 ML INHALATION PRN (02:44)
[2024-09-04] MEDS: ALBUTEROL INHALER 60 PUFF/8 GM INHALER (MHU) INHALATION PRN (07:31)
[2024-09-04] MEDS: LORazepam 1 MG TAB PO PRN (07:31)
[2024-09-04] MEDS: NICOTINE GUM (POLACRILEX) 2 MG GUM BUCCAL PRN (08:54)
[2024-09-04] MEDS ORDERED: NICOTINE 14MG/24HR PATCH TRANSDERM SCH (09:00)
[2024-09-04 09:34] LABS: Appearance,Urine Clear (Clear); Bilirubin,Urine Negative (Negative); Blood,Urine Negative (Negative); Color,Urine Yellow; Glucose,Urine (UA) Negative (Negative); Ketones,Urine Negative (Negative); Leukocyte Esterase,Urine Negative (Negative); Nitrite,Urine Negative (Negative); PH, Urine 5.5 (5.0-8.0); Protein,Urine Negative (Negative); Urobilinogen,Urine <2.0 mg/dL (<2.0)
[2024-09-04] MEDS ORDERED: IPRATROPIUM-ALBUTEROL 3 ML NEB INHALATION PRN (11:25)
[2024-09-04] MEDS ORDERED: NON FORMULARY DRUG (Albuterol Inhaler 90 MCG Puff) INHALATION PRN (11:25)
[2024-09-04] MEDS ORDERED: NON FORMULARY DRUG (Epinephrine (Auto Inject) 0.3 MG/0.3 ML Each) IM PRN (11:25)
[2024-09-04] MEDS: DUPILUMAB 300 MG/2 ML SQ SCH (11:45)
[2024-09-04] MEDS ORDERED: EPINEPHrine - Anaphylaxis Kit (1 mg/mL) IM PRN (11:49)
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
[2024-09-04] MEDS: LITHIUM CARBONATE ER 450 MG TABLET.ER PO SCH (12:16)
[2024-09-04] MEDS: OLANZapine ODT 5 MG TAB PO PRN (12:16)
--- NOTE | 2024-09-04 14:30 | P.MDCNMH ---
History of Present Illness H&P Date: 09/04/24 History of present illness; patient is a 34-year-old gentleman with past medical history significant for COPD, asthma, tobacco addiction presented to the ER on court order for psychiatric evaluation. Patient apparently was noncompliant with his medications and violated his outpatient commitment. Patient denies any homicidal suicidal thoughts. Patient denies any auditory or visual hallucinations. Patient was worked up in the ER UA negative for infection COVID-19 not detected Patient was admitted to inpatient psych REVIEW OF SYSTEMS: CONSTITUTIONAL: No fever, no malaise, no fatigue. HEENT: No recent visual problems or hearing problems. Denied any sore throat. CARDIOVASCULAR: No chest pain, orthopnea, PND, no palpitations, no syncope. PULMONARY: No shortness of breath, no cough, no hemoptysis. GASTROINTESTINAL: No diarrhea, no nausea, no vomiting, no abdominal pain. NEUROLOGICAL: No headaches, no weakness, no numbness. HEMATOLOGICAL: Denies any bleeding or petechiae. GENITOURINARY: Denies any burning micturition, frequency, or urgency. MUSCULOSKELETAL/RHEUMATOLOGICAL: Denies any joint pain, swelling, or any muscle pain. ENDOCRINE: Denies any polyuria or polydipsia. The rest of the 14-point review of systems is negative. PHYSICAL EXAMINATION: GENERAL: The patient is alert and oriented x3, not in any acute distress. Well developed, well nourished. HEENT: Pupils are round and equally reacting to light. EOMI. No scleral icterus. No conjunctival pallor. Normocephalic, atraumatic. No pharyngeal erythema. No thyromegaly. CARDIOVASCULAR: S1 and S2 present. No murmurs, rubs, or gallops. PULMONARY: Coarse breath sounds bilaterally, bilateral expiratory wheeze audible ABDOMEN: Soft, nontender, nondistended, normoactive bowel sounds. No palpable organomegaly. MUSCULOSKELETAL: No joint swelling or deformity. EXTREMITIES: No cyanosis, clubbing, or pedal edema. NEUROLOGICAL: Gross neurological examination did not reveal any focal deficits. SKIN: No rashes. Assessment and plan Mood disorder Intellectual disability History of COPD Amphetamine use disorder Cocaine use disorder Cannabis use disorder Tobacco use disorder Monitor vital signs Elopement precautions Continue albuterol, Symbicort Continue montelukast Continue psych meds per psychiatry team Labs and medication were reviewed.. Continue same treatment. Continue with symptomatic treatment. Resume home medication. Monitor labs and vitals. DVT and GI prophylaxis. Further recommendations as per clinical course of the patient Dictation was produced using GOkey dictation software. please excuse any grammatical, word or spelling errors. Past Medical History Past Medical History: Asthma, COPD, Skin Disorder Additional Past Medical History / Comment(s): cerebral palsy, psoriasis History of Any Multi-Drug Resistant Organisms: None Reported Past Surgical History: No Surgical Hx Reported Additional Past Surgical History / Comment(s): mass removed from left lung Past Psychological History: ADD/ADHD, Anxiety, Depression Smoking Status: Current every day smoker Past Alcohol Use History: None Reported Past Drug Use History: Cocaine, Marijuana, Methamphetamine Medications and Allergies Home Medications Medication Instructions Recorded Confirmed Type Loratadine [Claritin] 10 mg PO DAILY 30 Days #30 tab 10/21/23 09/04/24 Rx Albuterol Inhaler [Ventolin Hfa 2 puff INHALATION RT-Q6H PRN #1 02/23/24 09/04/24 Rx Inhaler] each [place] Carbonate ER [Lithobid] 450 mg PO DAILY 30 Days #30 tab 02/23/24 09/04/24 Rx Budesonide/Formoterol Fumarate 2 puff INHALATION RT-BID 09/04/24 09/04/24 History [Symbicort 160-4.5 Mcg Inhaler] Dupilumab [Dupixent Pen] 300 mg SQ Q14D 09/04/24 09/04/24 History EPINEPHrine (Auto Inject) [Epipen] 0.3 mg IM ONCE PRN 09/04/24 09/04/24 History Ipratropium-Albuterol Nebulize 3 ml INHALATION RT-QID PRN 09/04/24 09/04/24 History [Duoneb 0.5 mg-3 mg/3 ml Soln] Montelukast [Singulair] 10 mg PO HS 09/04/24 09/04/24 History Allergies Allergy/AdvReac Type Severity Reaction Status Date / Time bee venom protein (honey bee) Allergy Unknown Verified 09/04/24 10:22 diphenhydramine HCl Allergy Unknown Verified 09/04/24 10:22 [From Benadryl] latex Allergy Rash/Hives Verified 09/04/24 10:22 peanut Allergy Anaphylaxis Verified 09/04/24 10:22 peas Allergy Swelling Verified 09/04/24 10:22 Penicillins Allergy Anaphylaxis Verified 09/04/24 10:22 quetiapine fumarate Allergy Unknown Verified 09/04/24 10:22 [From Seroquel] Physical Exam Vitals: Vital Signs Temp Pulse Pulse Resp BP BP Pulse Ox 09/04/24 07:38 98.4 F 75 18 123/77 96 09/04/24 02:16 98.4 F 82 18 109/78 98 09/04/24 01:24 97.2 F L 86 18 116/73 99 09/03/24 20:04 98.8 F 97 18 121/66 97 Intake and Output 09/03/24 09/04/24 09/04/24 22:59 06:59 14:59 Other: Weight 127.913 kg 127.913 kg Cranial Nerve Examination - Cranial Nerves Cranial Nerve II- Optic: Intact (Cranial nerves II to XII intact) Cranial Nerve III- Oculomotor: Intact Cranial Nerve IV- Trochlear: Intact Cranial Nerve V- Trigeminal: Intact Cranial Nerve - Abducens: Intact Cranial Nerve VII- Facial: Intact Cranial Nerve VIII- Auditory: Intact Cranial Nerve IX- Glossopharyngeal: Intact Cranial Nerve X- Vagus: Intact Cranial Nerve XI- Accessory: Intact Cranial Nerve XII- Hypoglossal: Intact
[2024-09-04 19:26] LABS: Urine Alcohol Negative (Negative); Urine Barbiturate Negative (Negative); Urine Cocaine Negative (Negative); Urine Methadone Negative (Negative); Urine Opiates Negative (Negative); Urine Phencyclidine Negative (Negative)
[2024-09-04] MEDS: SYMBICORT 160-4.5 MCG INHALER INHALATION SCH (21:25)
[2024-09-04] MEDS: MONTELUKAST 10 MG TAB PO SCH (21:25)
[2024-09-05] MEDS: LORATADINE 10 MG TAB PO SCH (08:38)
[2024-09-05 08:49] LABS: Basophils # (A) 0.05 10*3/uL (0.00-0.10); Basophils % (A) 0.7 %; Eosinophils # (A) 0.66 10*3/uL (0.04-0.35); Eosinophils % (A) 9.3 %; HCT 44.7 % (39.6-50.0); HGB 15.4 g/dL (13.0-17.0); Lymphocytes # (A) 1.56 10*3/uL (0.90-5.00); Lymphocytes % (A) 21.9 %; MCH 30.6 pg (27.0-32.0); MCHC 34.5 g/dL (32.0-37.0); MCV 88.7 fL (80.0-97.0); Mean Platelet Volume 9.1 fL (9.5-12.2); Monocytes # (A) 0.65 10*3/uL (0.20-1.00); Monocytes % (A) 9.1 %; Neutrophils # (A) 4.17 10*3/uL (1.80-7.70); Neutrophils % (A) 58.7 %; Platelet Count 247 10*3/uL (140-440); RBC 5.04 10*6/uL (4.40-5.60); RDW 12.7 % (11.5-14.5); WBC 7.11 10*3/uL (4.50-10.00)
[2024-09-05 09:23] LABS: ALT 24 U/L (4-49); AST 27 U/L (17-59); African American GFR (CKD) >90 (>60 ml/min/1.73 sqM); Albumin 4.3 g/dL (3.5-5.0); Alkaline Phosphatase 75 U/L (38-126); Anion Gap 11 mmol/L; Blood Urea Nitrogen 13 mg/dL (9-20); Calcium 9.7 mg/dL (8.4-10.2); Carbon Dioxide 23 mmol/L (22-30); Chloride 107 mmol/L (98-107); Glucose 133 mg/dL (74-99); Non-African American GFR(CKD) >90 (>60 ml/min/1.73 sqM); Potassium 4.5 mmol/L (3.5-5.1); Sodium 141 mmol/L (137-145); Total Bilirubin 0.7 mg/dL (0.2-1.3); Total Protein 7.3 g/dL (6.3-8.2)
[2024-09-05] MEDS ORDERED: HALOPERIDOL LACTATE 5 MG/ML 1 ML VIAL IM PRN ×3 (12:26→14:19)
--- NOTE | 2024-09-05 12:37 | P.PN ---
Progress Note - Text Progress Note Date: 09/05/24 Interval History: Patient was seen wandering the hallways and was directable and agreeable to sp maria a with insurance underwriter sales in the office. The patient was screaming yesterday on the phone that someone saying I am going to kill you "nigger". I asked the patient about this during the interview any loss his composure stating that his was getting raped and I was doing nothing about it. His agitation went from 0-60 and no time and he was unable to control himself and made physical threats towards me. At which time he was asked to leave and he left. The patient continued to escalate screaming out you "fucking pussy". I will kick your ass as soon as I see you [id number]. I am going to burn the building down. At this time patient homical ideations, intent or plan. Mental Status Exam: General Appearance: Patient appears to be stated age is alert, not redirectable, and uncooperative. Behavior: Patient was extremely agitated and voiced threatening Speech: Patient's speech is fluent and screaming and loud Mood/Affect: Mood is rage and full affect. Suicidality/Homicidality: Patient having homicidal thoughts Perceptions: Patient denies any visual hallucinations and denies any auditory hallucinations Though content/process: The patient appears to be delusional about his girlfriend being raped Memory and concentration: AOX3, grossly intact for the purposes of this session Judgment and insight: No insight or judgment Diagnosis: Mood disorder unspecified Intellectual disability Amphetamine use disorder Cocaine use disorder Cannabis use disorder Tobacco use disorder IMPRESSIONS: The patient appears to have no impulse control and having homicidal thoughts additionally it appears that he is partially delusional. Demonstration of his lack of control shows that he is unable to leave this hospital at this time. PLAN: -Patient is admitted under commitment status to MHU for stabilization of psychiatric symptoms and safety. Patient has signed medication consent and is placed in patient's chart. A second certification was completed and along with petition will be filed for court. -Medications : Continue -[place] 450 mg take 1 tablet by mouth once daily for mood disorder Once -Haldol 5 mg IM for agitation -Ativan 2 mg IM for agitation -Benadryl 50 mg IM for agitation -Ativan and Zyprexa PRN for agitation/aggression -Patient was counselled on substance abuse and desired to cut back on use-Will offer patient subtance use rehab -Patient was informed of the risks, benefits and side effects of the medication and patient verbally consented to taking the medications. Patient signed med consent form and was placed in chart. -Internal Medicine consult to perform medical evaluation and physical. -NRT -nicotine patch -SW on board for discharge planning. Encourage patient to participate in groups to work on coping skills. Will await deferral and court date.
[2024-09-05] MEDS: diphenhydrAMINE 50 MG/ML 1 ML VIAL IM STA ×2 (12:47→13:41)
[2024-09-05] MEDS: HALOPERIDOL LACTATE 5 MG/ML 1 ML VIAL IM STA (12:47)
[2024-09-05] MEDS: LORazepam 2 MG/ML INJ IM STA ×2 (12:47→13:40)
[2024-09-05] MEDS ORDERED: LORazepam 2 MG/ML INJ IM PRN ×2 (13:00→14:21)
[2024-09-05] MEDS ORDERED: diphenhydrAMINE 50 MG/ML 1 ML VIAL IM PRN ×2 (13:03→14:22)
[2024-09-05] MEDS: chlorproMAZINE 100 MG TAB PO SCH (15:36)
[2024-09-06 07:55] VITALS: RESP 18
--- NOTE | 2024-09-06 14:22 | P.PN ---
Progress Note - Text Progress Note Date: 09/06/24 Interval History: Patient was seen in his room lying in bed where the interview was conducted al jorgedenny nurse. The patient has not had any outburst since starting the Thorazine but notes that it makes him too tired to function. He notes that "all I want to do is to be with my ". Subsequently his was in the emergency room and placed under involuntary and will be transferred. The patient denied any ongoing depression or anxiety. He notes that he does not have racing thoughts or mood swings. Per reviewing his previous [facility] report the patient does have a history of bipolar disorder. The patient denies any suicidal or homicidal thoughts. He notes that he is oversleeping because of the medication. Mental Status Exam: General Appearance: Patient appears to be stated age is alert, directable, and cooperative. Behavior: Patient is calmly seated without any agitated behavior. Speech: Patient's speech is fluent and nonpressured. Mood/Affect: Mood is hypomanic with swings, affect is congruent and constricted. Suicidality/Homicidality: Patient denies having any suicidal or homicidal ideation intent or plan. Perceptions: Patient denies any visual hallucinations and denies any auditory hallucinations Though content/process: There is no evidence of any delusional thought content and thought process is linear and goal-directed. Memory and concentration: AOX3, grossly intact for the purposes of this session Judgment and insight: Improving mildly Diagnosis: Bipolar disorder type I most recent episode manic Intellectual disability Amphetamine use disorder Cocaine use disorder Cannabis use disorder Tobacco use disorder Assessment: Plan: -Patient is admitted under commitment status to MHU for stabilization of psychiatric symptoms and safety. Patient has signed medication consent and is placed in patient's chart. A second certification was completed and along with petition will be filed for court. -Medications : Continue [place] 450 mg take 1 tablet by mouth once daily for mood disorder Decrease Thorazine 100 mg take 1 capsule by mouth at bedtime for aggressive psychotic behavior -Ativan and Zyprexa PRN for agitation/aggression -Patient was counselled on substance abuse and desired to cut back on use-Will offer patient subtance use rehab -Patient was informed of the risks, benefits and side effects of the medication and patient verbally consented to taking the medications. Patient signed med consent form and was placed in chart. -Internal Medicine consult to perform medical evaluation and physical. -NRT -nicotine patch -SW on board for discharge planning. Encourage patient to participate in groups to work on coping skills. Will await deferral and court date.
[2024-09-06] MEDS: chlorproMAZINE 100 MG TAB PO SCH (20:42)
[2024-09-07] MEDS: chlorproMAZINE 100 MG TAB PO ONE (09:33)
--- NOTE | 2024-09-07 10:23 | P.PN ---
Progress Note - Text Progress Note Date: 09/07/24 Interval History: Patient was seen wandering the hallways and was directable and agreeable to sp maria a with property underwriter in the office. The patient was able to identify that he acted inappropriately. Patient got upset in group because he felt disrespected. We discussed primary and secondary emotions including anger as well as using a method of coping by counting back from 10 in order to think before reacting. Patient responded positively to this. He notes that he is not having any racing thoughts or mood swings. He notes that he slept the whole night through. He notes that his energy, appetite and concentration are good. At this time patient denies any suicidal or homical ideations, intent or plan. Patient denies any auditory, visual hallucinations and denies any paranoia or delusions. Patient denies any side effects from the medications and has been compliant with meds. Mental Status Exam: General Appearance: Patient appears to be stated age is alert, directable, and cooperative. Behavior: Patient is calmly seated without any agitated behavior. Speech: Patient's speech is fluent and nonpressured. Mood/Affect: Mood is improving mildly, affect is congruent and constricted. Suicidality/Homicidality: Patient denies having any suicidal or homicidal ideation intent or plan. Perceptions: Patient denies any visual hallucinations and denies any auditory hallucinations Though content/process: There is no evidence of any delusional thought content and thought process is linear and goal-directed. Memory and concentration: AOX3, grossly intact for the purposes of this session Judgment and insight: Improving mildly Diagnosis: Bipolar disorder type I most recent episode manic Intellectual disability Amphetamine use disorder Cocaine use disorder Cannabis use disorder Tobacco use disorder Assessment: The patient is making progress it is felt that he will be able to be discharged soon. He still having some emotional outburst but is able to be redirected. Plan: -Patient is admitted under commitment status to MHU for stabilization of psychiatric symptoms and safety. Patient has signed medication consent and is placed in patient's chart. A second certification was completed and along with petition will be filed for court. -Medications : Continue [place] 450 mg take 1 tablet by mouth once daily for mood disorder Thorazine 100 mg take 1 capsule by mouth at bedtime for aggressive psychotic behavior -Ativan and Zyprexa PRN for agitation/aggression -Patient was counselled on substance abuse and desired to cut back on use-Will offer patient subtance use rehab -Patient was informed of the risks, benefits and side effects of the medication and patient verbally consented to taking the medications. Patient signed med consent form and was placed in chart. -Internal Medicine consult to perform medical evaluation and physical. -NRT -nicotine patch -SW on board for discharge planning. Encourage patient to participate in groups to work on coping skills. Will await deferral and court date.
[2024-09-08 10:19] VITALS: BP 123/79; PULSE 106; TEMP 98.2
--- NOTE | 2024-09-08 11:14 | P.DS ---
Providers Date of admission: 09/04/24 01:12 Admission HPI: Admission note was completed by Dr. Grove "Patient presented to the hospital after violating his outpatient commitment and being noncompliant with medications. He does have an appointment with the welt sole layer on 06 September and a Social Security hearing on 10 September. The patient notes that he missed his [facility] appointment after which they held his vape and lithium. He feels that he does well on the lithium. He currently denies any depression or anxiety. He notes that he is sleeping roughly 10 hours at night. He notes that his energy, appetite and concentration are normal. He denies any feelings of helplessness, hopelessness or worthlessness. He denies any crying or guilt or shame. He denies any suicidal or homicidal ideations. Review of systems was negative for bipolar disorder, OCD, PTSD, anxiety disorders or psychosis. He gave me permission to speak to his grandmother Devi she notes that he just finished rehab and then he was [place]. She notes that he lacks forward thinking. She notes that he has a history of Meth and cocaine use. At this time patient denies any auditory or visual hallucinations. Patient denies any flight of ideas racing thoughts and increased in goal directed behavior." Hospital course: Upon admission to the unit patient was admitted involuntarily on a petition and certificate and a second certificate was completed and faxed to the courts. Patient ended up signing a deferral with the records and tape recordings engineer and agreeing to treatment. The patient upon admission was irritable and stated to himself. There were a couple incidents where he became extremely explosive. At 1 point he was given emergency medications and had to have security on the floor. However as time progressed and he started getting antipsychotics he started calming down and was redirectable. Patient got along well with other patients on the unit and followed unit protocol. Patient was compliant with the medications and denied any side effects throughout hospital course. Patient was started on Thorazine 100 mg take 1 capsule by mouth at bedtime. The patient was restarted on his [place] 450 mg 1 capsule by mouth once daily. Patient spoke of his stressors and engaged in therapy both group and individual. Patient was also seen by medical team for history and physical exam. Throughout the course of the hospitalization patient gradually improved with regards to mood, anxiety, sleep and returned back to their baseline level of functioning became more future oriented with improved insight and judgment. On the day of discharge patient denied any suicidal or homicidal ideations intent or plan denied any auditory or visual hallucinations. Patient endorsed wanting to live for their health and family. The patient denied any access to guns or weapons. Patient denied any paranoia and did not endorse any delusions. Patient does have a significant history of substance abuse and was counseled on abstaining from all substances including alcohol and marijuana. Patient was also counseled on the medications and need for regular compliance and was encouraged to follow-up with their outpatient appointment for mental health and also for primary care. Prior to discharge a family meeting will be arranged by rn social services to answer any questions and ensure safety upon discharge incuding making sure that guns/weapons are either removed from the home or locked away. Day of discharge patient denied any suicidal or homicidal ideations. He denied any racing thoughts or mood swings. The patient denied any side effects with the medications. He was able to control his emotions and be redirected easily. Mental status exam: General Appearance: Patient appears to be his stated age is alert, pleasant, and cooperative. Patient is in no acute distress and has improved hygiene and grooming Behavior: Patient is calmly seated without any agitated behavior. Speech: Patient's speech is fluent and nonpressured. Mood/Affect: Patient reports their mood is "better good", affect is congruent and euthymic. Suicidality/Homicidality: Patient denies having any suicidal or homicidal ideation intent or plan. Perceptions: Patient denies any auditory or visual hallucinations. Though content/process: There is no evidence of any delusional thought content and thought process is linear and goal-directed. More future oriented Memory and concentration: AOX3, grossly intact for the purposes of this session. Can spell "WORLD" backwards correctly. Judgment and insight: Chronically poor, however has improved with guarded prognosis Diagnosis: Bipolar disorder type I most recent episode manic Intellectual disability Amphetamine use disorder Cocaine use disorder Cannabis use disorder Tobacco use disorder Plan: -Continue with discharge today as patient has improved and stabilized psychiatrically and is not currently an imminent threat to themself and/or others. Patient will remain at chronically elevated risk for harm to self and/or others due to their impulsivity and substance abuse. -Continue medications: Continue [place] 450 mg take 1 tablet by mouth once daily for mood disorder Thorazine 100 mg take 1 capsule by mouth at bedtime for aggressive psychotic behavior -Patient was counseled on the need for medication compliance and appropriate follow-up at mental health and also primary care for medical issues. Patient verbalized understanding and agreed. -Social work to help coordinate patients discharge today arrange for and conduct family meeting to ensure safety upon discharge and answer any questions/concerns. also to ensure safe home environment that guns/weapons are either removed from the home or locked away. Social work also to arrange for patients follow up appointments with [facility] for psychiatric care along with follow up with primary care provider. -Patient counseled on abstaining from recreational drugs and marijuana and alcohol. Was informed/educated on the adverse effects on their physical and mental health. Patient verbally agreed and understood. -Patient was instructed to return to the hospital or seek immediate medical care if their psychiatric or medical symptoms do worsen or reoccur. Expected date of discharge: 09/08/24 Attending physician: Meliton Weiss MD Consults: 09/04/24 01:28 Consult Physician Routine Consulting Provider: Casey Arzate Consult Reason/Comments: Medical Managment Do you want consulting provider notified?: Yes, Notify in am Primary care physician: Casey Arzate MD - Discharge Diagnosis(es) (1) Intellectual disability Current Visit: Yes Status: Chronic Priority: Low (2) Unspecified mood [affective] disorder Current Visit: Yes Status: Chronic Priority: High Plan - Discharge Summary Discharge Rx Participant: Yes New Discharge Prescriptions: No Action [place] Carbonate ER [Lithobid] 450 mg PO DAILY 30 Days #30 tab Ipratropium-Albuterol Nebulize [Duoneb 0.5 mg-3 mg/3 ml Soln] 3 ml INHALATION RT-QID PRN PRN Reason: Shortness Of Breath Montelukast [Singulair] 10 mg PO HS Loratadine [Claritin] 10 mg PO DAILY 30 Days #30 tab Albuterol Inhaler [Ventolin Hfa Inhaler] 2 puff INHALATION RT-Q6H PRN #1 each PRN Reason: Shortness Of Breath Dupilumab [Dupixent Pen] 300 mg SQ Q14D EPINEPHrine (Auto Inject) [Epipen] 0.3 mg IM ONCE PRN PRN Reason: Anaphylaxis Budesonide/Formoterol Fumarate [Symbicort 160-4.5 Mcg Inhaler] 2 puff INHALATION RT-BID Discharge Medication List Loratadine [Claritin] 10 mg PO DAILY 30 Days #30 tab 10/21/23 [Rx] Albuterol Inhaler [Ventolin Hfa Inhaler] 2 puff INHALATION RT-Q6H PRN #1 each 02/23/24 [Rx] [place] Carbonate ER [Lithobid] 450 mg PO DAILY 30 Days #30 tab 02/23/24 [Rx] Budesonide/Formoterol Fumarate [Symbicort 160-4.5 Mcg Inhaler] 2 puff INHALATION RT-BID 09/04/24 [History] Dupilumab [Dupixent Pen] 300 mg SQ Q14D 09/04/24 [History] EPINEPHrine (Auto Inject) [Epipen] 0.3 mg IM ONCE PRN 09/04/24 [History] Ipratropium-Albuterol Nebulize [Duoneb 0.5 mg-3 mg/3 ml Soln] 3 ml INHALATION RT-QID PRN 09/04/24 [History] Montelukast [Singulair] 10 mg PO HS 09/04/24 [History] Follow up Appointment(s)/Referral(s): [facility] [Other] - 09/08/24 1:00 pm (Allergry Shot ) [facility] [Outside] - 09/10/24 10:30 am (09/10/2024 10:30AM - 11:30AM ELINA PHAN 09/21/2024 1:30PM - 2:00PM MEMO SIMMONS) Casey Arzate MD [Primary Care Provider] - 1-2 days Activity/Diet/Wound Care/Special Instructions: Avoid the use of street drugs and alcohol. Take all medications as prescribed. When you are in need of refills on your medications, please contact your medical provider and/or outpatient psychiatrist/provider to have this done. Please go to your scheduled outpatient appointment for aftercare treatment. If symptoms return or become worse, call the crisis line at and/or go to the nearest emergency room for evaluation. National Suicide Hotline [address] [facility] confidentiality statement: "The information contained in this communication, including attachments, is confidential, may be privileged, and is intended only for the use of the named recipient(s). Unauthorized use, disclosure, forwarding or copying is strictly prohibited and may be unlawful. If you have received this communication in error, please notify me IMMEDIATELY at the phone number or pager listed above.
== END 2024-09-08 12:07 | disposition home or self-care (01) | DRG 753 ==
LOC: EC 19:58 → 3MHU 09-04 01:12
PROVIDERS: ADMIT Psychiatry & Neurology Psychiatry; ATTEND Psychiatry & Neurology Psychiatry
DX: F31.10 Bipolar disorder, current episode manic without psychotic features, unspecified (principal); Z59.02 Unsheltered homelessness; R45.851 Suicidal ideations; J44.89 Other specified chronic obstructive pulmonary disease; G80.9 Cerebral palsy, unspecified; L40.9 Psoriasis, unspecified; F41.9 Anxiety disorder, unspecified; F90.9 Attention-deficit hyperactivity disorder, unspecified type; F17.290 Nicotine dependence, other tobacco product, uncomplicated; F12.10 Cannabis abuse, uncomplicated; F14.10 Cocaine abuse, uncomplicated; F15.10 Other stimulant abuse, uncomplicated; F79 Unspecified intellectual disabilities; Z91.148 Patient's other noncompliance with medication regimen for other reason; Z79.51 Long term (current) use of inhaled steroids; Z79.899 Other long term (current) drug therapy; Z91.040 Latex allergy status; Z62.810 Personal history of physical and sexual abuse in childhood; Z88.0 Allergy status to penicillin; Z88.8 Allergy status to other drugs, medicaments and biological substances
CPT/HCPCS: 80053; 80306; 81003; 82075; 83036; 84443; 85025; 87635; 99285

== ENCOUNTER 2024-10-29 12:37 | Emergency (ER) | payer OTHER ==
[2024-10-29 12:59] VITALS: BP 132/81; PULSE 89; RESP 20; TEMP 98.2
--- NOTE | 2024-10-29 13:09 | ED ---
Skin/Abscess/FB HPI - General Chief complaint: Skin/Abscess/Foreign Body Stated complaint: Skin Rash Time Seen by Provider: 10/29/24 13:00 Source: patient, RN notes reviewed Mode of arrival: ambulatory Limitations: no limitations - History of Present Illness Initial comments: This is a 34-year-old male who presents to the emergency department for a rash. States that for the last 3 days he has had a rash all over his body on his arms, legs, abdomen, and feet. Denies exposure to anything outside or any new foods, drinks, or medications. Describes the rash as very itchy. He has not taken any medication for this. MD complaint: rash - Related Data Home Medications Medication Instructions Recorded Confirmed Dupilumab [Dupixent Pen] 300 mg SQ Q14D 09/04/24 09/04/24 Previous Rx's Medication Instructions Recorded Loratadine [Claritin] 10 mg PO DAILY 30 Days #30 tab 10/21/23 Albuterol Inhaler [Ventolin Hfa 2 puff INHALATION RT-Q6H PRN 30 09/08/24 Inhaler] Days #1 each Albuterol Inhaler [Ventolin Hfa 2 puff INHALATION RT-QID PRN each 09/08/24 Inhaler] Budesonide/Formoterol Fumarate 2 puff INHALATION RT-BID 30 Days 09/08/24 [Symbicort 160-4.5 Mcg Inhaler] each EPINEPHrine (Auto Inject) [Epipen] 0.3 mg IM ONCE PRN #1 each 09/08/24 Ipratropium-Albuterol Nebulize 3 ml INHALATION RT-QID PRN 30 Days 09/08/24 [Duoneb 0.5 mg-3 mg/3 ml Soln] each [place] Carbonate ER [Lithobid] 450 mg PO DAILY 30 Days #30 tab 09/08/24 Loratadine [Claritin] 10 mg PO DAILY #30 tab 09/08/24 Montelukast [Singulair] 10 mg PO HS 30 Days tab 09/08/24 chlorproMAZINE [Thorazine] 100 mg PO HS #30 tab 09/08/24 Famotidine 40 mg PO DAILY 7 Days #7 tablet 10/29/24 Triamcinolone 0.1% Cream [Kenalog 1 applicatio TOPICAL QID #80 gm 10/29/24 0.1% Cream] diphenhydrAMINE [Benadryl] 50 mg PO QID #30 capsule 10/29/24 predniSONE 50 mg PO DAILY 5 Days #5 tab 10/29/24 Allergies Allergy/AdvReac Type Severity Reaction Status Date / Time bee venom protein (honey bee) Allergy Unknown Verified 09/04/24 10:22 diphenhydramine HCl Allergy Unknown Verified 09/04/24 10:22 [From Benadryl] latex Allergy Rash/Hives Verified 09/04/24 10:22 peanut Allergy Anaphylaxis Verified 09/04/24 10:22 peas Allergy Swelling Verified 09/04/24 10:22 Penicillins Allergy Anaphylaxis Verified 09/04/24 10:22 quetiapine fumarate Allergy Unknown Verified 09/04/24 10:22 [From Seroquel] Review of Systems ROS Statement: Those systems with pertinent positive or pertinent negative responses have been documented in the HPI. ROS Other: All systems not noted in ROS Statement are negative. Past Medical History Past Medical History: Asthma, COPD, Skin Disorder Additional Past Medical History / Comment(s): cerebral palsy, psoriasis History of Any Multi-Drug Resistant Organisms: None Reported Past Surgical History: No Surgical Hx Reported Additional Past Surgical History / Comment(s): mass removed from left lung Past Psychological History: ADD/ADHD, Anxiety, Depression Smoking Status: Current every day smoker Past Alcohol Use History: None Reported Past Drug Use History: Cocaine, Marijuana, Methamphetamine General Exam Limitations: no limitations General appearance: alert, in no apparent distress Head exam: Present: atraumatic, normocephalic, normal inspection Respiratory exam: Present: normal lung sounds bilaterally. Absent: respiratory distress, wheezes, rales, rhonchi, stridor Cardiovascular Exam: Present: regular rate, normal rhythm Neurological exam: Present: alert, oriented X3, CN II-XII intact Psychiatric exam: Present: normal affect, normal mood Skin exam: Present: other (Urticaria to the bilateral upper and lower extremities and trunk) Course Vital Signs 10/29/24 12:58 Temperature 98.2 F Pulse Rate 89 Respiratory 20 Rate Blood Pressure 132/81 O2 Sat by Pulse 95 Oximetry Medical Decision Making - Medical Decision Making This is a 34-year-old male who presents to the emergency department for a rash. Was pt. sent in by a medical professional or institution? @ -No Did you speak to anyone other than the patient for history? @ -No Did you review nursing and triage notes? @ -Yes, and I agree, it is accurate with regards to the patient's symptoms. Were old charts reviewed? @ -No Differential Diagnosis? @ -Roseola, measles, Lyme disease, erythema multiforme, cellulitis, toxic shock syndrome, Brian Jose Raul syndrome, Kawasaki disease, [place] spotted fever, contact dermatitis, allergic dermatitis, measles, mumps, rubella, varicella, meningococcal disease, drug reaction, coxsackievirus, This is not meant to be an all-inclusive list. EKG interpreted by me (3pts min.)? @ -Not obtained X-rays interpreted by me (1pt min.)? @ -Not obtained CT interpreted by me (1pt min.)? @ -Not obtained U/S interpreted by me (1pt. min.)? @ -Not obtained What testing was considered but not performed? (CT, X-rays, U/S, labs)? Why? @ -None What meds were considered but not given? Why? @ -None Did you discuss the management of the patient with other professionals? @ -No Did you reconcile home meds? @ -No Was smoking cessation discussed for >3mins.? @ -I discussed smoking cessation for greater than 3 minutes. The risk of smoking were discussed with the patient including but not limited to risks of cancer, stroke, coronary artery disease and COPD. Also discussed with patient were multiple methods of quitting smoking. Lastly we discussed the financial cost of smoking. Was critical care preformed (if so, how long)? @ -No Were there social determinants of health that impacted care today? How? (Homelessness, low income, unemployed, alcoholism, drug addiction, transportation, low edu. Level, literacy, decrease access to med. care, residential, rehab)? @ -No Was there de-escalation of care discussed even if they declined? (Discuss DNR or withdrawal of care, Hospice)? @ -No What co-morbidities impacted this encounter? (DM, HTN, Smoking, COPD, CAD, Cancer, CVA, Hep., AIDS, mental health diagnosis, sleep apnea, morbid obesity)? @ -Smoking Was patient admitted / discharged? @ -Discharged. Physical examination consistent with urticaria. Solu-Medrol, Benadryl, and famotidine administered in the emergency department. Prescription for 5-day course of prednisone provided along with famotidine, Benadryl, and triamcinolone cream. Advised follow-up with his PCP for reevaluation. Patient discharged home in stable condition. Case discussed with ED attending Dr. Douglas. Return precautions reviewed in depth, the patient is instructed to return to the emergency department with any new, worsening, or concerning symptoms. Patient verbalized understanding. Undiagnosed new problem with uncertain prognosis? @ -None Drug Therapy requiring intensive monitoring for toxicity (Heparin, Nitro, Insulin, Cardizem)? @ -None Were any procedures done? @ -None Diagnosis/symptom? @ -Urticaria Acute, or Chronic, or Acute on Chronic? @ -Acute Uncomplicated (without systemic symptoms) or Complicated (systemic symptoms)? @ -Uncomplicated Side effects of treatment? @ -None Exacerbation, Progression, or Severe Exacerbation] @ -Not applicable Poses a threat to life or bodily function? @ -No Disposition Clinical Impression: Urticaria, Nicotine dependence Disposition: HOME SELF-CARE Instructions (If sedation given, give patient instructions): Urticaria (ED) Additional Instructions: Return to the emergency department with any new, worsening, or concerning symptoms. Take the prednisone daily for 5 days. Take the famotidine daily for 7 days. Take the Benadryl up to 4 times daily to help with itching and the appearance of the rash. You can also apply the triamcinolone cream up to 4 times daily. Avoid applying this to the face. Follow-up with your primary care provider for reevaluation. Prescriptions: diphenhydrAMINE [Benadryl] 50 mg PO QID #30 capsule Famotidine 40 mg PO DAILY 7 Days #7 tablet Triamcinolone 0.1% Cream [Kenalog 0.1% Cream] 1 applicatio TOPICAL QID #80 gm predniSONE 50 mg PO DAILY 5 Days #5 tab Is patient prescribed a controlled substance at d/c from ED?: No Referrals: Casey Arzate MD [Primary Care Provider] - 1-2 days Forms: [facility] [employer] Time of Disposition: 13:09
[2024-10-29] MEDS: diphenhydrAMINE 50 MG/ML 1 ML VIAL IM STA (13:15)
[2024-10-29] MEDS: FAMOTIDINE 20 MG TAB PO STA (13:19)
[2024-10-29] MEDS: methylPREDNISolone SOD SUCCI 125 MG/2 ML VIAL IM ONE (13:20)
== END 2024-10-29 13:36 | disposition home or self-care (01) ==
LOC: EC 12:37
DX: L50.9 Urticaria, unspecified (principal); F17.200 Nicotine dependence, unspecified, uncomplicated; Z91.040 Latex allergy status; Z88.8 Allergy status to other drugs, medicaments and biological substances; Z91.030 Bee allergy status; Z88.0 Allergy status to penicillin; Z91.010 Allergy to peanuts; Z91.018 Allergy to other foods
CPT/HCPCS: 99282; 96372; J2919